=== PATIENT | female | born 1975 | race Caucasian/White ===

== ENCOUNTER 2024-03-09 11:05 | Outpatient (CLI) | payer OTHER, SELFPAY ==
[2024-03-09 11:34] LABS: Basophils Absolute Auto 0.1 K/mm3 (0.0-0.1); Basophils Percent Auto 0.6 % (0.2-1.2); Eosinophils Absolute Auto 0.1 K/mm3 (0-0.3); Eosinophils Percent Auto 1.2 % (0-4.4); Hematocrit 41.2 % (37.0-47.0); Hemoglobin 13.5 g/dL (12.0-15.0); Immature Granulocyte Absolute 0.02 K/mm3 (0.00-0.031); Immature Granulocyte Percent A 0.2 % (0-0.5); Mean Corpuscular HGB Conc 32.8 g/dl (32-36); Mean Corpuscular Hemoglobin 28.9 pg (26-34); Mean Corpuscular Volume 88.2 fl (80-100); Mean Platelet Volume 9.4 fl (7.4-10.4); Monocytes Absolute Auto 0.6 K/mm3 (0.1-0.6); Monocytes Percent Auto 7.3 % (2.6-8.5); Neutrophils Percent Auto 58.7 % (45.5-73.1); Platelet Count Result 276 k/mm3 (150-375); Red Blood Count 4.67 M/mm3 (4.2-5.4); Red Cell Distribution Width 12.5 % (11.5-14.5); White Blood Count 8.4 K/mm3 (4.5-10.0)
[2024-03-09 11:44] LABS: Alanine Aminotransferase 28 U/L (6-35); Albumin Level 4.3 g/dL (3.5-5.1); Alkaline Phosphatase 53 U/L (38-126); Anion Gap 6 mmol/L (4-12); Aspartate Amino Transferase 29 U/L (14-36); Bilirubin,Total 0.7 mg/dL (0.2-1.3); Blood Urea Nitrogen 17 mg/dL (7-17); Calcium 8.9 mg/dL (8.4-10.2); Carbon Dioxide 31 mmol/L (22-30); Chloride 103 mmol/L (98-107); Cholesterol 146 mg/dL (0-200); Estimated Glomerular Filt Rate > 60; Glucose 86 mg/dL (65-110); HDL Direct 58 mg/dL; Magnesium 2.1 mg/dL (1.6-2.3); Potassium 4.7 mmol/L (3.4-5.0); Sodium 140 mmol/L (137-145); Triglycerides 51 mg/dL (<150)
[2024-03-09 11:55] LABS: LDL Cholesterol Direct 74 mg/dL
[2024-03-09 12:07] LABS: Free T4 Free Thyroxine 1.08 ng/mL (0.78-2.19); Vitamin D 25 Hydroxy 66.8 ng/mL
[2024-03-09 12:15] LABS: Thyroid Stimulating Hormone 0.869 uIU/mL (0.465-4.680)
== END 2024-03-09 11:06 | disposition home or self-care (01) ==
PROVIDERS: PCP Internal Medicine; Visit Provider Internal Medicine
DX: Z98.84 Bariatric surgery status (principal)
CPT/HCPCS: 36415; 80053; 80061; 82306; 82607; 83735; 84439; 84443; 85025

== ENCOUNTER 2024-11-13 08:00 | Outpatient (CLI) | payer OTHER, SELFPAY ==
--- NOTE | ~2024-11-13 | MM_ITS ---
EXAMINATION: MM screening [facility] HISTORY: Screening TECHNIQUE: Craniocaudal and mediolateral oblique 3-D tomosynthesis images were obtained and synthetic 2-D images were generated. CAD analysis was submitted and interpreted. COMPARISON: No prior mammogram is available for comparison at this institution. Patient reports prior imaging at [facility], performed as recently as 2022 for which images are requested. BREAST PARENCHYMAL COMPOSITION: The breasts are heterogeneously dense, which may obscure small masses . FINDINGS: Scattered asymmetries detected bilaterally, for which prior imaging is needed. No suspicious microcalcifications or architectural distortion. IMPRESSION: Scattered asymmetries detected bilaterally, for which prior imaging is needed. BI-RADS Category 0: Incomplete: Needs comparison with prior mammograms. Reviewed, dictated and finalized at location A.
== END 2024-11-13 08:01 | disposition home or self-care (01) ==
LOC: MICIMG 08:02
PROVIDERS: PCP Internal Medicine; Visit Provider Obstetrics & Gynecology
DX: Z12.31 Encounter for screening mammogram for malignant neoplasm of breast (principal); N64.89 Other specified disorders of breast
CPT/HCPCS: 77063; 77067

== ENCOUNTER 2024-12-10 08:05 | Outpatient (CLI) | payer OTHER, SELFPAY ==
--- OUTSIDE RECORDS SUMMARY | 2024-12-10 08:11 | XMS_ITS | Data Portability ---
Author Organization [place] - [facility], [facility] V[facility] Address [address] [place] [address] Care Team Providers Care Conversion Man Name Role Phone OLGA MANNING Primary Care Provider CARON CORDERO OTHER DIANA ECHOLS General Surgeon Assessment Encounter Date Assessment Date Assessment LastModified by Organization Details LastModified Time 11/14/2022 11/14/2022 47 y/o female status post robotic laparoscopic florence-en-Y gastric bypass who is here for an annual follow up. She is 2 years out from her surgery and states she is doing fantastic. Her BMI is now 28.7 down from 47.1. She is ecstatic about her weight loss totally 114 pounds since starting the program in which 100 of that is since surgery. She has more confidence and is active in several community events. She denies any difficulties with eating. She reports she had difficulties with IUD insertion and taking control pills so she opted to have the Nexplanon implanted. I have reviewed her labs and the only abnormality is a slightly low vitamin D level. She will add an OTC vitamin D supplement. She is taking her other vitamins as directed. Plan to see her in 1 year with labs. Diabetes Mellitus no GERD no Hyperlipidemia no Hypertension no Sleep Apnea no [id number] Not available 11/15/2022 17:17:06 Plan of Treatment Reminders Order Date Submit Date Provider Last Modified By Organization Details Last Modified Time Details Appointments None recorded. Lab ferritin, serum or plasma 2022 024 [email or web address] [facility], [address], [place], [address], 4 09:11:21 HbA1c (hemoglobi n A1c), blood 2022 024 [email or web address] [facility], [address] [place], [address], 4 09:11:21 iron + total iron-diego ng capacity (TIBC), serum 2022 024 [email or web address] [facility], [address] [place], [address], 4 09:11:21 magnesium, serum or plasma 2022 024 [email or web address] [facility], [address] [place], [address], 4 09:11:22 phosphorus , serum or plasma 2022 024 [email or web address] [facility], [address] [place], [address], 4 09:11:22 folate, RBC 2022 024 [email or web address] [facility], [address] [place], [address], 4 09:11:22 vitamin B12, serum 2022 024 [email or web address] [facility], [address] [place], [address], 4 09:11:22 vitamin B1 (thiamine) , blood 2022 024 [email or web address] [facility], [address] [place], [address], 4 09:11:22 CBC w/ auto diff 2022 024 [email or web address] [facility], [address] [place], [address], 4 09:11:22 CMP, serum or plasma 2022 024 [email or web address] [facility] Orders, [address] [place], [address], 4 09:11:23 vitamin D, 25-hydroxy , total, serum 2022 024 [email or web address] [facility], [address] [place], [address], 4 09:11:23 Referral None recorded. Procedures None recorded. Surgeries None recorded. Imaging None recorded. Medication Orders None recorded. Patient TargetsNo targets recorded. Patient InstructionsNo instructions recorded. Reason for Referral None Reported. Results Created Date Observation Date Name Description Value Unit Range Abnormal Flag Note LastModifiedBy Organization Detail LastModifiedTime 05/29/2005/29/2022 VITAM IN B12 (MARIA DE JESUS PIERCE ) vb12 >1000 pg/mL 239-93 1 high Not Available [facility] (Lab) [address] [place], [address], 05/29/2022 12:27:42 05/29/2005/29/2022 VITAM IN D 25-HY DROXY vd25oh 38.6 NG/mL 30-100 Vitam in D Statu s: Defic ient: <20 ng/mL Insuf ficie nt: 20-29 ng/mL Suffi cient : 30-10 0 ng/mL Not Available [facility] (Lab) [address] [place], [address], 05/29/2022 12:14:23 05/29/2005/29/2022 ARMIN TIN ferritin 61 NG/mL 6.24-1 37 Not Available [facility] (Lab) [address] [place], [address], 05/29/2022 12:03:54 05/29/2005/29/2022 COMPR EHENS GISELLE METAB OLIC PANEL chloride 104 mmol/ L 98-107 Not Available [facility] (Lab) [address] [place], [address], 05/29/2022 12:01:46 05/29/20 22 05/29/2022 COMPR EHENS GISELLE METAB OLIC PANEL sodium 138 mmol/ L 137-14 5 Not Available [facility] (Lab) [address] [place], [address], 05/29/2022 12:01:46 05/29/20 22 05/29/2022 COMPR EHENS GISELLE METAB OLIC PANEL potassium 4.1 mmol/ L 3.5-5. 1 Not Available [facility] (Lab) [address] [place], [address], 05/29/2022 12:01:46 05/29/20 22 05/29/2022 COMPR EHENS GISELLE METAB OLIC PANEL carbon dioxide 29 mmol/ L 22-30 Not Available [facility] (Lab) [address] [place], [address], 05/29/2022 12:01:46 05/29/20 22 05/29/2022 COMPR EHENS GISELLE METAB OLIC PANEL anion gap 9.1 mmol/ L 14-22 low Not Available [facility] (Lab) [address] [place], [address], 05/29/2022 12:01:46 05/29/20 22 05/29/2022 COMPR EHENS GISELLE METAB OLIC PANEL glucose 81 mg/dL 70-99 Not Available [facility] (Lab) [address] [place], [address], 05/29/2022 12:01:46 05/29/20 22 05/29/2022 COMPR EHENS GISELLE METAB OLIC PANEL BUN 17 mg/dL 8-19 Not Available [facility] (Lab) [address] [place], [address], 05/29/2022 12:01:46 05/29/20 22 05/29/2022 COMPR EHENS GISELLE METAB OLIC PANEL creatinine 0.73 mg/dL 0.66-1 .25 Not Available [facility] (Lab) [address] [place], [address], 05/29/2022 12:01:46 05/29/20 22 05/29/2022 COMPR EHENS GISELLE METAB OLIC PANEL GFR >60 Refer ence Range : [place] GFR Healt hy Adult : >60 mL/mi n/1.7 3 m2 Chron ic Kidne y Disea se: 15-60 mL/mi n/1.7 3 m2 Kidne y Failu re: <15/m L/min /1.73 m2 www.n iddk. nih.g ov The MDRD study equat ion has not been valid ated in child joshua <18 years of age; pregn ant women ; the elder ly >85 years of age; or in some racia l or ethni c subgr oups, such as Hisor nics. Outsi de the valid ated jackie eters , estim ated GFR is less accur ate, requi ring clini kevin judgm ent on a case- by-ca se basis . Clini kevin inter preta tion for other races and ages must be made by the clini ade. The MDRD study equat ion has not been valid ated for the evalu ation of serum creat inine relat ed to nutri aneudy l statu s or medic ation usage . For perso ns <18 years of age, a pedia tric GFR calcu lator is avail able on the F websi te: https ://yomi w.kid millicent.o rg/pr ofess ional s/kdo qi/gf r_cal culat or Not Available [facility] (Lab) [address] [place], [address], 05/29/2022 12:01:46 05/29/20 22 05/29/2022 COMPR EHENS GISELLE METAB OLIC PANEL alkaline phosphatase 51 U/L 38-126 Not Available [facility] (Lab) [address] [place], [address], 05/29/2022 12:01:46 05/29/2005/29/2022 COMPR EHENS GISELLE METAB OLIC PANEL alanine aminotransfe rase 22 U/L 0-35 Not Available [facility] (Lab) [address] [facility] [place], [address], 05/29/2022 12:01:46 05/29/2005/29/2022 COMPR EHENS GISELLE METAB OLIC PANEL aspartate aminotransfe rase 22 U/L 15-37 Not Available [facility] (Lab) [address] [place], [address], 05/29/2022 12:01:46 05/29/20 22 05/29/2022 COMPR EHENS GISELLE METAB OLIC PANEL bilirubin, total 0.80 mg/dL 0.20-1 .30 Not Available [facility] (Lab) [address] [place], [address], 05/29/2022 12:01:46 05/29/2005/29/2022 COMPR EHENS GISELLE METAB OLIC PANEL calcium 8.9 mg/dL 8.4-10 .2 Not Available [facility] (Lab) [address] [place], [address], 05/29/2022 12:01:46 05/29/2005/29/2022 COMPR EHENS GISELLE METAB OLIC PANEL total protein 6.4 g/dL 6.3-8. 2 Not Available [facility] (Lab) [address] [place], [address], 05/29/2022 12:01:46 05/29/20 22 05/29/2022 COMPR EHENS GISELLE METAB OLIC PANEL albumin 4.1 g/dL 3.4-5. 0 Not Available [facility] (Lab) [address] [place], [address], 05/29/2022 12:01:46 05/29/20 22 05/29/2022 COMPR EHENS GISELLE METAB OLIC PANEL globulin 2.3 g/dL 2.6-4. 2 low Not Available [facility] (Lab) [address] [place], [address], 05/29/2022 12:01:46 05/29/20 22 05/29/2022 COMPR EHENS GISELLE METAB OLIC PANEL A/G ratio 1.8 ratio 1.0-2. 0 Not Available [facility] (Lab) [address] [place], [address], 05/29/2022 12:01:46 05/29/20 22 05/29/2022 LIPID PANEL cholesterol 147 mg/dL 140-19 9 [facility] NSUS RECOM MENDA TION FOR GEORGE STERO L: ADULT CHILD LOW RISK: <200 <170 BORDE RLINE : <200- 239 ----- HIGH RISK: >240 >200 Not Available [facility] (Lab) [address] [place], [address], 05/29/2022 12:01:41 05/29/20 22 05/29/2022 LIPID PANEL triglyceride s 46 mg/dL 0-150 [facility] NSUS REPOR T RECOM MENDA TION FOR TRIGL YCERI BRUNILDA: ADULT CHILD LOW RISK: <150 ----- BODER LINE: 150-1 99 ----- HIGH RISK: >200 ----- Not Available [facility] (Lab) [address] [place], [address], 05/29/2022 12:01:41 05/29/20 22 05/29/2022 LIPID PANEL HDL cholesterol 73 mg/dL 40- Not Available [facility] (Lab) [address] [place], [address], 05/29/2022 12:01:41 1005/29/2022 LIPID PANEL LDL cholesterol, calculated 65 mg/dL 0-130 [facility] NSUS REPOR T RECOM MENDA TIONS FOR LDL: ADULT CHILD LOW RISK <130 <110 (OPTI MAL LDL) <100 ----- BORDE RLINE : 130-1 59 ----- HIGH RISK: >160 >130 A TRIGL YCERI DE RESUL T >400 INVAL IDATE S THE CALCU LATIO N FOR LDL FRACT IONAT ION - THE LDL RESUL T WILL NOT BE REPOR MARLON. Not Available [facility] (Lab) [address] [place], [address], 05/29/2022 12:01:41 05/29/2005/29/2022 MAGNE SIUM magnesium 1.9 mg/dL 1.6-2. 3 Not Available [facility] (Lab) [address] [place], [address], 05/29/2022 12:01:34 05/29/2005/29/2022 IRON/ TIBC PANEL total iron binding capacity 346 mcg/d L 265-47 5 Not Available [facility] (Lab) [address] [place], [address], 05/29/2022 12:00:15 05/29/20 22 05/29/2022 IRON/ TIBC PANEL % transferrin saturation 35 % 20-55 Not Available [facility] (Lab) [address] [place], [address], 05/29/2022 12:00:15 05/29/2005/29/2022 IRON/ TIBC PANEL unsaturated iron bind capacity 226 mcg/d L 126-38 2 Not Available [facility] (Lab) [address] [place], [address], 05/29/2022 12:00:15 05/29/20 22 05/29/2022 IRON/ TIBC PANEL iron 120 mcg/d L 42-175 Not Available [facility] (Lab) [address] [place], [address], 05/29/2022 12:00:15 05/29/20 22 05/29/2022 CBC/C OMPLE TE BLD COUNT W/DIF F mean red cell volume 90.2 fL 82.0-9 9.0 Not Available [facility] (Lab) [address] [place], [address], 05/29/2022 10:51:37 05/29/20 22 05/29/2022 CBC/C OMPLE TE BLD COUNT W/DIF F white blood cells 8.0 x10'3 /uL 4.2-10 .8 Not Available [facility] (Lab) [address] [place], [address], 05/29/2022 10:51:37 05/29/20 22 05/29/2022 CBC/C OMPLE TE BLD COUNT W/DIF F red blood cells 4.40 x10'6 /uL 3.80-5 .20 Not Available [facility] (Lab) [address] [place], [address], 05/29/2022 10:51:37 05/29/20 22 05/29/2022 CBC/C OMPLE TE BLD COUNT W/DIF F hemoglobin 12.7 g/dL 12.0-1 5.6 Not Available [facility] (Lab) [address] [place], [address], 05/29/2022 10:51:37 05/29/20 22 05/29/2022 CBC/C OMPLE TE BLD COUNT W/DIF F hematocrit 39.7 % 35.7-4 5.7 Not Available [facility] (Lab) [address] [place], [address], 05/29/2022 10:51:37 05/29/20 22 05/29/2022 CBC/C OMPLE TE BLD COUNT W/DIF F mean red cell hemoglobin 28.9 pg 27.0-3 3.0 Not Available [facility] (Lab) [address] [facility] [place], [address], 05/29/2022 10:51:37 05/29/20 22 05/29/2022 CBC/C OMPLE TE BLD COUNT W/DIF F mean RBC HGB concentratio n 32.0 g/dL 31.0-3 6.0 Not Available [facility] (Lab) [address] [place], [address], 05/29/2022 10:51:37 05/29/20 22 05/29/2022 CBC/C OMPLE TE BLD COUNT W/DIF F red cell distribution width 12.4 % 11.8-1 5.5 Not Available [facility] (Lab) [address] [place], [address], 05/29/2022 10:51:37 05/29/20 22 05/29/2022 CBC/C OMPLE TE BLD COUNT W/DIF F platelets 225 x10'3 /uL 150-40 0 Not Available [facility] (Lab) [address] [place], [address], 05/29/2022 10:51:37 05/29/20 22 05/29/2022 CBC/C OMPLE TE BLD COUNT W/DIF F mean platelet volume 9.8 fL 9.0-12 .4 Not Available [facility] (Lab) [address] [place], [address], 05/29/2022 10:51:37 05/29/20 22 05/29/2022 CBC/C OMPLE TE BLD COUNT W/DIF F neutrophils 57.6 % 39.0-7 2.0 Not Available [facility] (Lab) [address] [place], [address], 05/29/2022 10:51:37 05/29/20 22 05/29/2022 CBC/C OMPLE TE BLD COUNT W/DIF F lymphocytes 32.5 % 16.0-4 7.0 Not Available [facility] (Lab) [address] [place], [address], 05/29/2022 10:51:37 05/29/20 22 05/29/2022 CBC/C OMPLE TE BLD COUNT W/DIF F monocytes 7.8 % 5.0-12 .0 Not Available [facility] (Lab) [address] [place], [address], 05/29/2022 10:51:37 05/29/20 22 05/29/2022 CBC/C OMPLE TE BLD COUNT W/DIF F eosinophils 1.3 % 1.0-7. 0 Not Available [facility] (Lab) [address] [place], [address], 05/29/2022 10:51:37 05/29/20 22 05/29/2022 CBC/C OMPLE TE BLD COUNT W/DIF F basophils 0.5 % 0.0-2. 0 Not Available [facility] (Lab) [address] [place], [address], 05/29/2022 10:51:37 05/29/20 22 05/29/2022 CBC/C OMPLE TE BLD COUNT W/DIF F immature granulocytes 0.3 % 0.00-0 .50 Not Available [facility] (Lab) [address] [place], [address], 05/29/2022 10:51:37 05/29/20 22 05/29/2022 CBC/C OMPLE TE BLD COUNT W/DIF F neutrophils, absolute count 4.62 x10'3 /uL 1.5-8. 0 Not Available [facility] (Lab) [address] [place], [address], 05/29/2022 10:51:37 05/29/20 22 05/29/2022 CBC/C OMPLE TE BLD COUNT W/DIF F lymphocytes, absolute count 2.60 x10'3 /uL 1.07-3 .43 Not Available [facility] (Lab) [address] [place], [address], 05/29/2022 10:51:37 05/29/20 22 05/29/2022 CBC/C OMPLE TE BLD COUNT W/DIF F monocytes, absolute count 0.62 x10'3 /uL 0.29-0 .99 Not Available [facility] (Lab) [address] [place], [address], 05/29/2022 10:51:37 05/29/20 22 05/29/2022 CBC/C OMPLE TE BLD COUNT W/DIF F eosinophils, absolute count 0.10 x10'3 /uL 0.02-0 .53 Not Available [facility] (Lab) [address] [place], [address], 05/29/2022 10:51:37 05/29/20 22 05/29/2022 CBC/C OMPLE TE BLD COUNT W/DIF F basophils, absolute count 0.04 x10'3 /uL 0.01-0 .08 Not Available [facility] (Lab) [address] [place], [address], 05/29/2022 10:51:37 05/29/20 22 05/29/2022 CBC/C OMPLE TE BLD COUNT W/DIF F immature granulocytes ,absolute 0.02 x10'3 /uL 0.00-0 .05 Not Available [facility] (Lab) [address] [place], [address], 05/29/2022 10:51:37 05/29/20 22 05/29/2022 CBC/C OMPLE TE BLD COUNT W/DIF F nucleated red blood cells 0.0 % -0 Not Available [facility] (Lab) [address] [place], [address], 05/29/2022 10:51:37 05/29/20 22 05/29/2022 CBC/C OMPLE TE BLD COUNT W/DIF F NRBC# 0.00 x10'3 /uL Not Available [facility] (Lab) [address] [place], [address], 05/29/2022 10:51:37 10/03/19 23 10/03/2022 COMPR EHENS GISELLE METAB OLIC PANEL sodium 136 mmol/ L 137-14 5 low Not Available [facility] (Lab) [address] [place], [address], 10/03/2022 17:05:14 10/03/19 23 10/03/2022 COMPR EHENS GISELLE METAB OLIC PANEL potassium 4.3 mmol/ L 3.5-5. 1 Not Available [facility] (Lab) [address] [place], [address], 10/03/2022 17:05:14 10/03/19 23 10/03/2022 COMPR EHENS GISELLE METAB OLIC PANEL chloride 105 mmol/ L 98-107 Not Available [facility] (Lab) [address] [place], [address], 10/03/2022 17:05:14 10/03/19 23 10/03/2022 COMPR EHENS GISELLE METAB OLIC PANEL carbon dioxide 26 mmol/ L 22-30 Not Available [facility] (Lab) [address] [place], [address], 10/03/2022 17:05:14 10/03/19 23 10/03/2022 COMPR EHENS GISELLE METAB OLIC PANEL anion gap 9.3 mmol/ L 14-22 low Not Available [facility] (Lab) [address] [place], [address], 10/03/2022 17:05:14 10/03/19 23 10/03/2022 COMPR EHENS GISELLE METAB OLIC PANEL glucose 86 mg/dL 70-99 Not Available [facility] (Lab) [address] [place], [address], 10/03/2022 17:05:14 10/03/19 23 10/03/2022 COMPR EHENS GISELLE METAB OLIC PANEL BUN 22 mg/dL 8-19 high Not Available [facility] (Lab) [address] [place], [address], 10/03/2022 17:05:14 10/03/19 23 10/03/2022 COMPR EHENS GISELLE METAB OLIC PANEL creatinine 0.73 mg/dL 0.66-1 .25 Not Available [facility] (Lab) [address] [facility] [place], [address], 10/03/2022 17:05:14 10/03/19 23 10/03/2022 COMPR EHENS GISELLE METAB OLIC PANEL GFR >60 Refer ence Range : [place] GFR Healt hy Adult : >60 mL/mi n/1.7 3 m2 Chron ic Kidne y Disea se: 15-60 mL/mi n/1.7 3 m2 Kidne y Failu re: <15/m L/min /1.73 m2 www.n iddk. nih.g ov The MDRD study equat ion has not been valid ated in child joshua <18 years of age; pregn ant women ; the elder ly >85 years of age; or in some racia l or ethni c subgr oups, such as [facility] nics. Outsi de the valid ated jackie eters , estim ated GFR is less accur ate, requi ring clini kevin judgm ent on a case- by-ca se basis . Clini kevin inter preta tion for other races and ages must be made by the clini ade. The MDRD study equat ion has not been valid ated for the evalu ation of serum creat inine relat ed to nutri aneudy l statu s or medic ation usage . For perso ns <18 years of age, a pedia tric GFR calcu lator is avail able on the [facility] websi te: https ://yomi kelly.yves ricks.o rg/pr ofess ional s/kdo qi/gf r_cal culat or Not Available [facility] (Lab) [address] [place], [address], 10/03/2022 17:05:14 10/03/19 23 10/03/2022 COMPR EHENS GISELLE METAB OLIC PANEL alkaline phosphatase 45 U/L 38-126 Not Available [facility] (Lab) [address] [place], [address], 10/03/2022 17:05:14 10/03/19 23 10/03/2022 COMPR EHENS GISELLE METAB OLIC PANEL calcium 8.4 mg/dL 8.4-10 .2 Not Available [facility] (Lab) [address] [place], [address], 10/03/2022 17:05:14 10/03/19 23 10/03/2022 COMPR EHENS GISELLE METAB OLIC PANEL alanine aminotransfe rase 31 U/L 0-35 Not Available [facility] (Lab) [address] [place], [address], 10/03/2022 17:05:14 10/03/19 23 10/03/2022 COMPR EHENS GISELLE METAB OLIC PANEL aspartate aminotransfe rase 29 U/L 15-37 Not Available [facility] (Lab) [address] [place], [address], 10/03/2022 17:05:14 10/03/19 23 10/03/2022 COMPR EHENS GISELLE METAB OLIC PANEL bilirubin, total 0.90 mg/dL 0.20-1 .30 Not Available [facility] (Lab) [address] [place], [address], 10/03/2022 17:05:14 10/03/19 23 10/03/2022 COMPR EHENS GISELLE METAB OLIC PANEL total protein 5.4 g/dL 6.3-8. 2 low Not Available [facility] (Lab) [address] [place], [address], 10/03/2022 17:05:14 10/03/19 23 10/03/2022 COMPR EHENS GISELLE METAB OLIC PANEL albumin 3.3 g/dL 3.4-5. 0 low Not Available [facility] (Lab) [address] [place], [address], 10/03/2022 17:05:14 10/03/19 23 10/03/2022 COMPR EHENS GISELLE METAB OLIC PANEL globulin 2.1 g/dL 2.6-4. 2 low Not Available [facility] (Lab) [address] [place], [address], 10/03/2022 17:05:14 10/03/19 23 10/03/2022 COMPR EHENS GISELLE METAB OLIC PANEL A/G ratio 1.6 ratio 1.0-2. 0 Not Available [facility] (Lab) [address] [place], [address], 10/03/2022 17:05:14 10/03/1910/03/2022 CBC/C OMPLE TE BLD COUNT W/DIF F mean red cell volume 90.4 fL 82.0-9 9.0 Not Available [facility] (Lab) [address] [place], [address], 10/03/2022 15:07:31 10/03/1910/03/2022 CBC/C OMPLE TE BLD COUNT W/DIF F white blood cells 9.2 x10'3 /uL 4.2-10 .8 Not Available [facility] (Lab) [address] [place], [address], 10/03/2022 15:07:31 10/03/19 23 10/03/2022 CBC/C OMPLE TE BLD COUNT W/DIF F red blood cells 4.92 x10'6 /uL 3.80-5 .20 Not Available [facility] (Lab) [address] [place], [address], 10/03/2022 15:07:31 10/03/19 23 10/03/2022 CBC/C OMPLE TE BLD COUNT W/DIF F hemoglobin 14.1 g/dL 12.0-1 5.6 Not Available [facility] (Lab) [address] [facility] [place], [address], 10/03/2022 15:07:31 10/03/19 23 10/03/2022 CBC/C OMPLE TE BLD COUNT W/DIF F hematocrit 44.5 % 35.7-4 5.7 Not Available [facility] (Lab) [address] [place], [address], 10/03/2022 15:07:31 10/03/19 23 10/03/2022 CBC/C OMPLE TE BLD COUNT W/DIF F mean red cell hemoglobin 28.7 pg 27.0-3 3.0 Not Available [facility] (Lab) [address] [place], [address], 10/03/2022 15:07:31 10/03/19 23 10/03/2022 CBC/C OMPLE TE BLD COUNT W/DIF F mean RBC HGB concentratio n 31.7 g/dL 31.0-3 6.0 Not Available [facility] (Lab) [address] [place], [address], 10/03/2022 15:07:31 10/03/19 23 10/03/2022 CBC/C OMPLE TE BLD COUNT W/DIF F red cell distribution width 12.5 % 11.8-1 5.5 Not Available [facility] (Lab) [address] [place], [address], 10/03/2022 15:07:31 10/03/19 23 10/03/2022 CBC/C OMPLE TE BLD COUNT W/DIF F platelets 257 x10'3 /uL 150-40 0 Not Available [facility] (Lab) [address] [place], [address], 10/03/2022 15:07:31 10/03/19 23 10/03/2022 CBC/C OMPLE TE BLD COUNT W/DIF F mean platelet volume 9.6 fL 9.0-12 .4 Not Available [facility] (Lab) [address] [place], [address], 10/03/2022 15:07:31 10/03/19 23 10/03/2022 CBC/C OMPLE TE BLD COUNT W/DIF F neutrophils 65.5 % 39.0-7 2.0 Not Available [facility] (Lab) [address] [place], [address], 10/03/2022 15:07:31 10/03/19 23 10/03/2022 CBC/C OMPLE TE BLD COUNT W/DIF F lymphocytes 25.7 % 16.0-4 7.0 Not Available [facility] (Lab) [address] [place], [address], 10/03/2022 15:07:31 10/03/19 23 10/03/2022 CBC/C OMPLE TE BLD COUNT W/DIF F monocytes 6.7 % 5.0-12 .0 Not Available [facility] (Lab) [address] [place], [address], 10/03/2022 15:07:31 10/03/19 23 10/03/2022 CBC/C OMPLE TE BLD COUNT W/DIF F eosinophils 1.3 % 1.0-7. 0 Not Available [facility] (Lab) [address] [place], [address], 10/03/2022 15:07:31 10/03/19 23 10/03/2022 CBC/C OMPLE TE BLD COUNT W/DIF F basophils 0.5 % 0.0-2. 0 Not Available [facility] (Lab) [address] [place], [address], 10/03/2022 15:07:31 10/03/19 23 10/03/2022 CBC/C OMPLE TE BLD COUNT W/DIF F immature granulocytes 0.3 % 0.00-0 .50 Not Available [facility] (Lab) [address] [place], [address], 10/03/2022 15:07:31 10/03/1910/03/2022 CBC/C OMPLE TE BLD COUNT W/DIF F neutrophils, absolute count 6.04 x10'3 /uL 1.5-8. 0 Not Available [facility] (Lab) [address] [place], [address], 10/03/2022 15:07:31 10/03/19 23 10/03/2022 CBC/C OMPLE TE BLD COUNT W/DIF F lymphocytes, absolute count 2.37 x10'3 /uL 1.07-3 .43 Not Available [facility] (Lab) [address] [place], [address], 10/03/2022 15:07:31 10/03/19 23 10/03/2022 CBC/C OMPLE TE BLD COUNT W/DIF F monocytes, absolute count 0.62 x10'3 /uL 0.29-0 .99 Not Available [facility] (Lab) [address] [place], [address], 10/03/2022 15:07:31 10/03/1910/03/2022 CBC/C OMPLE TE BLD COUNT W/DIF F eosinophils, absolute count 0.12 x10'3 /uL 0.02-0 .53 Not Available [facility] (Lab) [address] [place], [address], 10/03/2022 15:07:31 10/03/19 23 10/03/2022 CBC/C OMPLE TE BLD COUNT W/DIF F basophils, absolute count 0.05 x10'3 /uL 0.01-0 .08 Not Available [facility] (Lab) [address] [place], [address], 10/03/2022 15:07:31 10/03/19 23 10/03/2022 CBC/C OMPLE TE BLD COUNT W/DIF F immature granulocytes ,absolute 0.03 x10'3 /uL 0.00-0 .05 Not Available [facility] (Lab) [address] [place], [address], 10/03/2022 15:07:31 10/03/19 23 10/03/2022 CBC/C OMPLE TE BLD COUNT W/DIF F nucleated red blood cells 0.0 % -0 Not Available [facility] (Lab) [address] [place], [address], 10/03/2022 15:07:31 10/03/19 23 10/03/2022 CBC/C OMPLE TE BLD COUNT W/DIF F NRBC# 0.00 x10'3 /uL Not Available [facility] (Lab) [address] [place], [address], 10/03/2022 15:07:31 Result Notes None recorded. Problems Name Problem SNOMED Code Status Onset Date Resolution Date Notes Provider Name and Address Organization Details Recorded Time Acute sinusiti s 76704675 Completed 202111/15/2022 Removal Reason: resolved Caron Cordero [facility] 3 17:05:56 Insomnia 152645257 Active 2021 Not Available [facility] 3 14:11:05 Anxiety disorder 826185943 Active Not Available [facility] 3 14:11:05 Morbid obesity 436545821 Completed 201905/29/2021 Not Available [facility] 3 14:11:05 Post-toma gical malabsor ption 862622556 Active 2020 Not Available [facility] 3 14:11:05 Malaise and fatigue 129372757 Completed 11/15/2022 Removal Reason: resolved Caron - BRIEN Corder[facility], [facility] 3 17:06:19 Vitamin D deficien cy 58389259 Active 2020 Not Available [facility] 3 14:11:05 Depressi ve disorder 06597790 Active Not Available [facility] 3 14:11:05 Body mass index 40+ - severely obese [id number] Completed 201905/29/2021 Not Available [facility] 3 14:11:05 Initial insomnia 34219018 Active 2021 Not Available [facility] 3 14:11:05 History of bariatri c surgical procedur e 208283663 Active 2020 Not Available [facility] 3 14:11:06 Adverse reaction to drug 92626400 Active 2021 Not Available [facility] 3 14:11:06 Cholelit hiasis without obstruct ion 94068783 Active Not Available [facility] 3 14:11:06 Postchol ecystect parviz syndrome 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 Procedures Surgical History Date Name Laterality Status Provider Name and Address Organization Details Recorded Time 11/22/19 21 LAPARASCOPIC [place]-EN-Y GASTRIC BYPASS (SURG) completed Not Available [facility] 08/31/2022 14:08:22 Imaging Results None recorded. Procedure Notes None recorded. Medical Equipment None Reported. Allergies Allergen ID Allergen Name Allergen Category Reaction Reaction Severity Criticality Documentation Date Start Date Code Code System Note Provider Name and Address Organization Details Recorded Time 39584 Tegaderm medicatio n Not available Not available Not available 08/31/2022 67536 UNK Not Available [facility] 3 14:12:34 34981 amoxicill in medicatio n Not available Not available Not available 08/31/2022 723 RxNorm Not Available [facility] 3 14:12:34 Medications Name Sig Start Date Stop Date Status Note LastModified by Organization Details LastModified Time amoxicillin 500 mg capsule Take 1 capsule 3 times a day by oral route for 10 days. 12/23 completed Not Available Not Available Not Available Augmentin 875 mg-125 mg tablet Take 1 tablet every 12 hours by oral route. active Not Available Not Available No t Available Tylenol-Cod eine #4 300 mg-60 mg tablet Take 1 tablet every 6 hours by oral route. 11/15 completed Not Available Not Available Not Available Neurontin 300 mg capsule Take 1 capsule 3 times a day by oral route. 2014 active Not Available Not Available Not Avai lable trazodone 50 mg tablet TAKE 1 TABLET BY MOUTH EVERYDAY AT BEDTIME 06/05 completed Not Available Not Available Not Available Topamax 25 mg tablet Take 1 tablet twice a day by oral route. active Not Available Not Available No t Available benzonatate 200 mg capsule Take 1 capsule 3 times a day by oral route. active Not Available Not Available No t Available Zithromax Z-Eric 250 mg tablet TAKE 2 TABLETS (500 MG) BY ORAL ROUTE ONCE DAILY FOR 1 DAY THEN 1 TABLET (250 MG) BY ORAL ROUTE ONCE DAILY FOR 4 DAYS 11/14 completed Not Available Not Available Not Available Diflucan 150 mg tablet Take 1 tablet every day by oral route. active Not Available Not Available No t Available Wellbutrin SR 150 mg tablet, 12 hr sustained-r elease Take 1 tablet every day by oral route. 2014 active Not Available Not Available Not Avai lable Ciloxan 0.3 % eye drops Instill 1 DROP EVERY 2 HOURS while awake active Not Available Not Available No t Available Zofran 4 mg tablet Take 1 tablet every 4-6 hours by oral route. 11/15 completed Not Available Not Available Not Available trazodone 100 mg tablet Take 1 tablet twice a day by oral route. 11/14 completed Not Available Not Available Not Available Xanax 0.25 mg tablet Take 1 tablet 3 times a day by oral route. 11/15 completed Not Available Not Available Not Available pantoprazol e 40 mg tablet,isatu yed release TAKE 1 TABLET BY MOUTH EVERY DAY 06/20 completed Not Available Not Available Not Available Levaquin 500 mg tablet Take 1 tablet every 24 hours by oral route. active Not Available Not Available No t Available [place] 7.5 mg-325 mg tablet Take 1 tablet every 6 hours by oral route. 11/15 completed Not Available Not Available Not Available methylpredn isolone 4 mg tablets in a dose pack Take by oral route as per package insert active Not Available Not Available No t Available albuterol sulfate HFA 90 mcg/actuati on aerosol inhaler Inhale 2 puffs every 6 hours by inhalatio n route. active Not Available Not Available No t Available Lovenox 40 mg/0.4 mL subcutaneou s syringe Inject 0.4 mL every day by subcutane ous route for 10 days. 11/15 completed Not Available Not Available Not Available Daily-Kym tablet TAKE 1 TABLET BY MOUTH EVERY DAY active Not Available Not Available No t Available NuvaRing 0.12 mg-0.015 mg/24 hr vaginal Insert 1 vaginal ring every month by vaginal route. 11/15 completed Not Available Not Available Not Available metoprolol tartrate 25 mg tablet TAKE 1 TABLET BY MOUTH TWICE DAILY 11/15 completed Not Available Not Available Not Available topiramate 50 mg tablet TAKE 1 TABLET BY MOUTH TWICE DAILY 11/15 completed Not Available Not Available Not Available Vitamin B12 active Not Available Not A vailable Not Available Calcium 600 + D(3) 600 mg-10 mcg (400 unit) tablet TAKE 1 TABLET BY MOUTH TWICE A DAY active Not Available Not Available No t Available Annovera 0.15 mg-0.013 mg/24 hr vaginal ring active Not Available Not Available Not Available Vitals Date Recorded Body height Body mass index (BMI) Body weight Body temperature Heart rate Oxygen saturation Oxygen saturation in Arterial blood by Pulse oximetry Systolic blood pressure Diastolic blood pressure Provider Name and Address Organization Details Last Updated DateTime 3 167.64 cm 28.7 kg/m2 30009.4 4 g 97 [degF] 79 /min 98 % 98 % 123 mm[Hg] 85 mm[Hg] Lilia Garcia [facility] 3 15:06:01 Date Recorded Body mass index (BMI) Body height Oxygen saturation Oxygen saturation in Arterial blood by Pulse oximetry Heart rate Body temperature Body weight Systolic blood pressure Diastolic blood pressure Provider Name and Address Organization Details Last Updated DateTime 2 29.2 kg/m2 167.64 cm 98 % 98 % 83 /min 97.4 [degF] 57963.2 2 g 114 mm[Hg] 75 mm[Hg] Not Available [facility] 3 14:09:15 Date Recorded Body mass index (BMI) Body height Oxygen saturation Oxygen saturation in Arterial blood by Pulse oximetry Heart rate Body temperature Body weight Systolic blood pressure Diastolic blood pressure Provider Name and Address Organization Details Last Updated DateTime 2 28.7 kg/m2 167.64 cm 100 % 100 % 72 /min 97.1 [degF] 26910.4 4 g 120 mm[Hg] 68 mm[Hg] Not Available [facility] 3 14:09:15 Date Recorded Body mass index (BMI) Body height Oxygen saturation Oxygen saturation in Arterial blood by Pulse oximetry Heart rate Body temperature Body weight Systolic blood pressure Diastolic blood pressure Provider Name and Address Organization Details Last Updated DateTime 2 28 kg/m2 167.64 cm 98 % 98 % 82 /min 97.3 [degF] 89919.2 8 g 112 mm[Hg] 60 mm[Hg] Not Available [facility] 3 14:09:15 Social History Question Answer Notes LastModified by Organizat ion Details LastModified Time Tobacco Smoking Status Former Smoker Not Available [facility] 08/31/2022 14:07:33 Do You Have An Advance Directive? No [id number] Information not available 08/31/2022 What Type Of Diet Are You Following? SPECIFIC [id number] Information not available 08/31/2022 Have You Recently Traveled Abroad? No [id number] Information not available 08/31/2022 Sex: Unknown Functional Status None recorded. Mental Status None recorded. Family History Nothing Reported Notes:Mother age 59 A+W Fath er age 65 A+W Sister 1 A+W MGM Breast ca,cad, HTN , CVA , dm MGF Cancer, CAD , HTN , CVA PGF prostate cancer Medical History Condition Response NERVE DISEASE N BLINDNESS N RHEUMATIC FEVER N KIDNEY STONES N BLADDER PROBLEMS N MRSA N OTHER # 1 N POLIO N LUNG DISEASE/DISORDER N RADIATION / CHEMOTHERAPY N COPD N Other # 2 N BLOOD DISEASES N EAR OR HEARING PROBLEMS N MUMPS N DEPRESSION (INCLUDING POST ) Y BOWEL PROBLEMS N STROKE/TIA N ULCERS N BENIGN PROSTATIC HYPERPLASIA N MEASLES N MYOCARDIAL INFARCTION N OBESITY N GERD/NAUSEA N ANEURYSM N URINARY/BLADDER/KIDNEY PROBLEMS N CORONARY ARTERY DISEASE (CAD) N ADDICTION CONCERNS N Impotence N ENDOMETRIOSIS N USE OF BLOOD THINNERS N SKIN PROBLEMS N GASTROINTESTINAL DISORDER N PERIPHERAL VASCULAR DISEASE N MUSCLE,JOINT OR BONE PROBLEMS N GASTROINTESTINAL BLEEDING N BLOOD CLOTS N ASTHMA N CATARACTS N ERECTILE DYSFUNCTION N VARICOSITIES N GI PROBLEMS N Low Testosterone N INFERTILITY N AIDS/HIV N CHEMOTHERAPY / RADIATION N LIVER DISEASE N MALE HYPOGONADISM N HYPERTENSION Y Deficiency N TOURETTE'S N ANXIETY DISORDER N BLOOD TRANSFUSION N ANEMIA/BLOOD DISORDER N CHRONIC EAR INFECTIONS N BRONCHITIS N TUBERCULOSIS N GLAUCOMA N FOOT PROBLEM N DIVERTICULITIS N SLEEP APNEA N CHICKENPOX N INFECTIOUS DISEASE N PROSTATE N HEART ARRHYTHMIA N INSOMNIA N HIGH CHOLESTEROL / HYPERLIPIDEMIA N HYPERTHYROIDISM N EYE PROBLEMS N EDEMA N CHRONIC PAIN SYNDROME N HYPOTHYROIDISM N CONSTIPATION N CAROTID BLOCKAGE N BACK / NECK PROBLEMS N HAVE YOU BEEN HOSPITALIZED OR SEEN IN [facility] IN THE PAST YEAR ? N ATHEROSCLEROSIS N BREAST PROBLEMS N DIALYSIS N ECZEMA N OSTEOPOROSIS N ARTHRITIS N NO SIGNIFICANT PAST MEDICAL HISTORY N APPENDICITIS N DIABETES, TYPE N BAD TEETH N ENT N HEARTBURN / REFLUX N AUTISM SPECTRUM DISORDER (ASD) N HEPATITIS / LIVER DISEASE N GOUT N SLEEP DISORDER N ALZHEIMER'S DISEASE N Brain Problems N HERPES N DEMENTIA N SEIZURES/EPILEPSY N HEADACHES/MIGRAINES Y VASCULAR DISEASE N PACEMAKER N Blood Disorder N DIZZINESS N KIDNEY DISEASE N HEART DISEASE/HEART PROBLEMS N MULTIPLE SCLEROSIS N CARDIAC ARRHYTHMIA N CANCER: SPECIFY N Gall Stones N ATRIAL FIBRILLATION N PULMONARY EMBOLISM N AUTOIMMUNE DISEASE N ABDOMINAL PAIN N Gynecological HistoryNo gynecological history recorded. Obstetrics History GPAL:G 0 P 0 0 0 0 Immunizations Vaccine Type Date Status Note Provider Nam e and Address Organization Details Recorded Time SARS-COV-2 (COVID-19) vaccine, UNSPECIFIED 1 completed Not Available [facility] 08/31/2022 14:12:31 Influenza, split virus, quadrivalent, preservative 1 completed Not Available [facility] 08/31/2022 14:12:32 SARS-COV-2 (COVID-19) vaccine, UNSPECIFIED 1 completed Not Available [facility] 08/31/2022 14:12:32 SARS-COV-2 (COVID-19) vaccine, UNSPECIFIED 1 completed Not Available [facility] 08/31/2022 14:12:32 tetanus toxoid, adsorbed 5 completed Not Available [facility] 08/31/2022 14:12:32 Td (adult), 5 Lf tetanus toxoid, preservative free, adsorbed 5 completed Not Available [facility] 08/31/2022 14:12:32 Past Encounters Encounter ID Performer Location Encounter Start Date Encounter Closed Date Diagnosis/Indication Diagnosis SNOMED-CT Code Diagnosis ICD10 Code Diagnosis Note [id number] DISP_CR Bariatric s [address] [place] [address] 11/09/2020 00:00:00 11/09/2020 14:02:53 [id number] DISP_CR [address] [place] [address] 11/15/2020 00:00:00 11/15/2020 13:05:01 [id number] _ATHENA_M IGRATION_ DEFAULT_1 _5 , 11/15/2020 00:00:00 11/15/2020 17:03:32 [id number] DISP_CR [address] [place] [address] 12/11/2020 00:00:00 12/11/2020 17:05:32 [id number] _ATHENA_M IGRATION_ DEFAULT_1 _5 , 01/10/2021 00:00:00 01/10/2021 15:20:05 [id number] DISP_CR [address] [place] [address] 02/27/2021 00:00:00 02/27/2021 17:39:05 [id number] _ATHENA_M IGRATION_ DEFAULT_1 _5 , 03/21/2021 00:00:00 03/21/2021 16:43:32 [id number] DISP_CR Bariatric s [address] [place] [address] 05/29/2021 00:00:00 05/29/2021 16:14:01 [id number] _ATHENA_M IGRATION_ DEFAULT_1 _5 , 06/20/2021 00:00:00 06/20/2021 15:02:15 [id number] _ATHENA_M IGRATION_ DEFAULT_1 _5 , 09/19/2021 00:00:00 09/19/2021 15:10:48 [id number] DISP_CR [address] [place] [address] 11/15/2021 00:00:00 11/15/2021 18:17:14 [id number] _ATHENA_M IGRATION_ DEFAULT_1 _5 , 05/23/2022 00:00:00 05/23/2022 12:16:30 [id number] _ATHENA_M IGRATION_ DEFAULT_1 _5 , 06/05/2022 00:00:00 06/05/2022 14:46:29 [id number] Caron Cordero DISP_CR [address] [place] [address] 11/14/2022 14:55:11 11/14/2022 15:43:05 History of bariatric surgical procedure [id number] 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 383498761 K91.2 Vitamin D deficiency 347 37014 E55.9 [id number] _ATHENA_M IGRATION_ DEFAULT_1 _5 , 10/04/2022 00:00:00 10/04/2022 11:56:47 Health Concerns Section Related Observation LastModified by Organization Detai ls LastModified Time None Recorded Concern Status LastModified by Organization Details LastModified Time None Recorded Advance Directives Directive N: Payers Encounter Date Sequence Insurance Name Policy Number Policy Velez Covered Member ID Velez Member ID Guarantor Name 11/14/2022 1 [place] 000 Diana Rodriguez [id number] Diana Rodriguez Notes Date Note Type Note Provider Name and Address Organization Details Recorded Time 11/14/2022 text/html 47 y/o female status post robotic laparoscopic [place]-en-Y gastric bypass who is almost 2 years post operative.and here for an annual visit. She is doing great and wishes she had done surgery years ago. She states she has a whole new outlook on life, has learned to accept herself, and loves being more involved in her community. She states her weight was down to 160 but she feels more comfortable with her weight ranging in the 170's. She denies any troubles with any types of foods and reports she only has problems when she forgets and eats to fast. Caron silva, [facility] 11/15/2022 17:19:45 OBGyn Episode No OBEpisode recorded.
--- OUTSIDE RECORDS SUMMARY | 2024-12-10 08:11 | XMS_ITS | Data Portability ---
Author Organization [facility] RONALDMarian [facility] Address [address] [place] [address] Care Team Providers Care Relationship Specialist Name Role Phone JOSE GRAYSON Lawn Service Manager Assessment Encounter Date Assessment Date Assessment LastModified by Organization Details LastModified Time 11/09/2021 11/09/2021 SHEN Lopez Not available 11/21/2021 22:35:45 01/04/2022 01/04/2022 SHEN Kirkland Not available 01/04/2022 14:53:27 Plan of Treatment Reminders Order Date Submit Date Provider Last Modified By Organization Details Last Modified Time Details Appointments None recorded. Lab test, urine 2021 022 [email or web address] 1 In-Office Order, Internal Use Only DO Not Attach Compendium DO Not Attach Compendium, Do Not Delete/merge, [id number] 10:22:30 test, urine 2021 022 [email or web address] 1 In-Office Order, Internal Use Only DO Not Attach Compendium DO Not Attach Compendium, Do Not Delete/merge, [id number] 10:12:55 hepatitis panel (A+B+C), acute, serum 2020 021 [facility], [address] [place], [address], 15:55:43 treponema pallidum screen, serum, reflex confirmat ion 2020 021 [facility], [address] [place], [address], 1 15:55:43 HIV 1+2 AB + HIV 1 p24 Ag, qualitati ve immunoass ay, serum 2020 021 [facility], [address] [place], [address], 1 15:55:43 CT + NG + TV, DNA, urine/swa b 2020 021 [facility], [address] [place] [address], [address], [place], [address], 1 03:07:48 urinalysi s, dipstick 2019 020 walter In-Office Order, Internal Use Only DO Not Attach Compendium DO Not Attach Compendium, Do Not Delete/merge, [id number] 0 10:39:10 pap, IG + HPV, cervical 2019 020 [facility], [address] [place] [address], [address], [place], [address], 0 16:09:19 bacterial vaginosis panel, vaginal 2019 020 [facility] (Centralized Electronic Ordering - All Locations), Patient Can Go To The Location Of Their Choice, [id number] 0 06:21:45 culture, vaginal/r ectal, streptoco ccus group B 2019 020 [facility]), Patient Can Go To The Location Of Their Choice, [id number] 0 06:21:46 Referral None recorded. Procedures None recorded. Surgeries None recorded. Imaging US, pelvis, transabdo mitul + transvagi nal 2021 022 [facility] ([facility] Sched[facility]), [address] [place], [address], 2 17:28:34 MAMMO, screening , bilateral 2020 021 [facility] ([facility] Scheduling), [address] [place], [address], 1 10:16:54 MAMMO, screening , bilateral 2019 020 [facility] (One Call Scheduling), [address] [place], [address], 0 10:24:07 Medication Orders Nexplanon 68 mg subdermal implant 2021 022 [email or web address] Not available 2 11:25:06 Mirena 21 mcg/24 hr (up to 8 years) 52 mg intrauter ine device 2021 022 [email or web address] [facility] #[id number], [address] [place], [address], 2 09:47:35 Mirena 21 mcg/24 hr (up to 8 years) 52 mg intrauter ine device 2021 022 dgriggsma Not available 2 09:47:35 Annovera 0.15 mg-0.013 mg/24 hr vaginal ring 2020 021 [email or web address] 1 [facility], [address] [place] [address], [address], 2 11:18:08 multivita min tablet 2019 020 [id number], [address] [place], [place], [id number], 0 10:38:33 Calcium with Vitamin D 600 mg-10 mcg (400 unit) tablet 2019 020 [facility] #[id number], [address] [place], [place], [id number], 1 10:29:58 imiquimod 5 % topical cream packet 2019 [facility] #[id number] [place], [place], [id number], 10:30:48 Patient TargetsNo targets recorded. Patient Instructions Encounter Date Encounter Id Patient Instructions Last Modified By Organization Details Last Modified Time 09/29/2019 [id number] mammogram: about this test margaretafsaneh Not available 09/29/2019 10:23:59 genital warts: care instructions [facility] Not available 09/29/2019 10:54:09 human papillomavirus (HPV): care instructions [facility] Not available 09/29/2019 10:54:09 Begin Imiquimod for genital warts. Multivitamin & calcium. Return in 2 months and 4 months for gardasil series. Schedule Mammogram. margaretfasaneh Not available 09/29/2019 10:59:18 Discussed option s for perimenopausal state - norethindrone, Combi patch, will consider if symptoms worsen. margaretafsaneh Not available 09/29/2019 10:59:42 05/10/2021 [id number] learning about breast cancer screening Not available 05/10/2021 10:46:05 Reason for Referral None Reported. Results Created Date Observation Date Name Description Value Unit Range Abnormal Flag Note LastModifiedBy Organization Detail LastModifiedTime 09/29/1909/29/2019 urina lysis , dipst ick Leukocytes Negati ve Not Available In-Office Order Internal Use Only DO Not Attach Compendium DO Not Attach Compendium, Do Not Delete/merge, [id number] 09/29/2019 10:12:42 09/29/1909/29/2019 urina lysis , dipst ick Nitrite negati ve Not Available In-Office Order Internal Use Only DO Not Attach Compendium DO Not Attach Compendium, Do Not Delete/merge, [id number] 09/29/2019 10:12:42 09/29/192020 urina lysis , dipst ick Urobilinogen .2 Not Available In-Of fice Order Internal Use Only DO Not Attach Compendium DO Not Attach Compendium, Do Not Delete/merge, 09/29/2019 10:12:42 09/29/19 20 09/29/2019 urina lysis , dipst ick Protein Negati ve Not Available In-Office Order Internal Use Only DO Not Attach Compendium DO Not Attach Compendium, Do Not Delete/merge, 09/29/2019 10:12:42 09/29/19 20 09/29/2019 urina lysis , dipst ick pH 5.5 Not Available In-Office Order Internal Use Only DO Not Attach Compendium DO Not Attach Compendium, Do Not Delete/merge, 09/29/2019 10:12:42 09/29/19 20 09/29/2019 urina lysis , dipst ick Blood Negati ve Not Available In-Office Order Internal Use Only DO Not Attach Compendium DO Not Attach Compendium, Do Not Delete/merge, 09/29/2019 10:12:42 09/29/19 20 09/29/2019 urina lysis , dipst ick Specific [place] 1.020 Not Available In-Off ice Order Internal Use Only DO Not Attach Compendium DO Not Attach Compendium, Do Not Delete/merge, 09/29/2019 10:12:42 09/29/19 20 09/29/2019 urina lysis , dipst ick Ketone Negati ve Not Available In-Office Order Internal Use Only DO Not Attach Compendium DO Not Attach Compendium, Do Not Delete/merge, 09/29/2019 10:12:42 09/29/19 20 09/29/2019 urina lysis , dipst ick Bilirubin Negati ve Not Available In-Office Order Internal Use Only DO Not Attach Compendium DO Not Attach Compendium, Do Not Delete/merge, 09/29/2019 10:12:42 09/29/19 20 09/29/2019 urina lysis , dipst ick Glucose Negati ve Not Available In-Office Order Internal Use Only DO Not Attach Compendium DO Not Attach Compendium, Do Not Delete/merge, [id number] 09/29/2019 10:12:42 09/29/19 20 10/01/2019 pap, IG + HPV, cervi kevin diagnosis: COMMEN T SHELDON DESAI FOR INTRA EPITH ELIAL LESIO N OR NANCYMIGUEL MIKE . PREDO SRI CE OF COCCO BACIL LI CONSI STENT WITH SHIFT IN VAGIN AL SUMANTH IS PRESE NT. CELLU LAR HANNAH ES ASSOC IATED WITH INFLA MMATI ON ARE PRESE NT. Not Available [facility] ([facility]) [address] [facility], [place], [address], 10/01/2019 16:09:18 09/29/19 20 10/01/2019 pap, IG + HPV, cervi kevin specimen adequacy: COMMUZMA T Satis facto jany for evalu ation . Endoc ervic al and/o r squam ous metap lasti c cells (endo cervi kevin compo nent) are prese nt. Not Available [facility] ([facility]) [address] [facility], [place], [address], 10/01/2019 16:09:18 09/29/19 20 10/01/2019 pap, IG + HPV, cervi kevin clinician provided ICD10: UYEN Negron Z01.4 19 Z20.2 Not Available [facility] ([facility]) [address] [facility], [place], [address], 10/01/2019 16:09:18 09/29/19 20 10/01/2019 pap, IG + HPV, cervi kevin performed by: UYEN Lang rs, Cytot harris negron (ASCP ) Not Available [facility] ([facility]) [address] [place], [address], 10/01/2019 16:09:18 09/29/19 20 10/01/2019 pap, IG + HPV, cervi kevin . . Not Available [facility] ([facility]) [address] [place], [address], 10/01/2019 16:09:18 09/29/19 20 10/01/2019 pap, IG + HPV, cervi kevin note: COMMEN T The Pap smear is a scree gilberto test desig stephany to aid in the detec tion of endy ligna nt and malig nant condi tions of the uteri ne cervi x. It is not a diagn ostic proce dure and shoul d not be used as the sole means of detec ting cervi kevin cance r. Both false -posi tive and false -nega tive repor ts do occur . Not Available [facility] ([facility]) [address] [place], [address], 10/01/2019 16:09:18 09/29/1910/01/2019 pap, IG + HPV, cervi kevin test methodology: TNP The Thin Prep( R) Image r was unabl e to read this speci men. There fore a manua l revie w was perfo rmed. Not Available [facility] ([facility]) [address] [facility], [place], [address], 10/01/2019 16:09:18 09/29/1910/01/2019 pap, IG + HPV, cervi kevin HPV aptima NEGATI VE negati ve This nucle ic acid ampli ficat ion test detec ts fourt een high- risk HPV types (16,1 8,31, 33,35 ,39,4 5,51, 52,56 ,58,5 9,66, 68) witho ut diffe renti ation . Not Available [facility] ([facility]) [address] [place], [address], 10/01/2019 16:09:18 09/29/1910/02/2019 bacte rial vagin osis panel , vagin al atopobium vaginae HIGH - 2 score abnormal Not Available [facility] ([facility]) [address] [place], [address], 10/05/2019 06:21:45 09/29/1910/02/2019 bacte rial vagin osis panel , vagin al bvab 2 HIGH - 2 score abnormal Not Available [facility] ([facility]) [address] [place], [address], 10/05/2019 06:21:45 09/29/1910/02/2019 bacte rial vagin osis panel , vagin al megasphaera 1 HIGH - 2 score abnormal Calcu late total score by audi krishnan the 3 indiv idual bacte rial vagin osis (BV) marke r score s toget her. Total score is inter prete d as follo ws: Total score 0-1: Indic ates the absen ce of BV. Total score 2: Indet ermin ate for BV. Addit ional clini kevin data shoul d be evalu ated to estab aysha a diagn osis. Total score 3-6: Indic ates the prese nce of BV. This test was devel oped and its perfo rmanc e monica cteri stics deter mined by [facility]. It has not been clear ed or appro brittny by the Food and Drug Admin istra tion. The FDA has deter mined that such clear ance or appro kianna is not neces hakan. Not Available [facility] ([facility]) [address] [facility], [place], [address], 10/05/2019 06:21:45 09/29/1910/02/2019 bacte rial vagin osis panel , vagin al hoang albicans, KARISHMA NEGATI VE negati ve Not Available [facility] ([facility]) [address] [place], [address], 10/05/2019 06:21:45 09/29/1910/02/2019 bacte rial vagin osis panel , vagin al hoang glabrata, KARISHMA NEGATI VE negati ve Not Available [facility] ([facility]) [address] [place], [address], 10/05/2019 06:21:45 09/29/1910/02/2019 bacte rial vagin osis panel , vagin al trich vag by KARISHMA NEGATI VE negati ve Not Available [facility] ([facility]) [address] [place], [address], 10/05/2019 06:21:45 09/29/1910/02/2019 bacte rial vagin osis panel , vagin al chlamydia trachomatis, KARISHMA NEGATI VE negati ve Not Available [facility] ([facility]) [address] [place], [address], 10/05/2019 06:21:45 09/29/1910/02/2019 bacte rial vagin osis panel , vagin al neisseria gonorrhoeae, KARISHMA NEGATI VE negati ve Not Available [facility] ([facility]) [address] [place], [address], 10/05/2019 06:21:45 09/29/1910/05/2019 bacte rial vagin osis panel , vagin al hsv 1 KARISHMA NEGATI VE negati ve Not Available [facility] ([facility]) [address] [place], [address], 10/05/2019 06:21:45 09/29/1910/05/2019 bacte rial vagin osis panel , vagin al hsv 2 KARISHMA NEGATI VE negati ve Not Available [facility] ([facility]) [address] [place], [address], 10/05/2019 06:21:45 09/29/19 20 10/01/2019 cultu re, vagin al/re ctal, strep tococ cus group B strep gp B KARISHMA NEGATI VE negati ve Cente rs for Disea se Contr ol and Preve ntion (CDC) and Ameri can Congr ess of Obste trici ans and Gynec ologi sts (ACOG ) guide lines for preve ntion of perin atal group B strep tococ kevin (GBS) disea se speci fy co-co llect ion of a vagin al and recta l swab speci men to maxim ize sensi tivit y of GBS detec tion. Per the CDC and ACOG, swabb ing both the lower vagin a and rectu m subst antia lly incre ases the yield of detec tion esymour red with sampl ing the vagin a alone . Penic illin G, ampic illin , or cefaz new are indic ated for intra partu m proph ylaxi s of perin atal GBS colon izati on. Refle x susce ptibi lity testi ng shoul d be perfo rmed prior to use of clind amyci n only on GBS isola louise from penic illin -alexx rgic women who are consi dered a high risk for anaph ylaxi s. Treat ment with vanco mycin witho ut addit ional testi ng is warra nted if resis tance to clind amyci n is noted . Not Available [facility] ([facility]) [address] [place], [address], 10/05/2019 06:21:46 05/10/20 21 05/11/2021 CT, NG, TRICH VAG BY KARISHMA chlamydia by KARISHMA Negati ve negati ve Not Available [facility] ([facility]) [address] [place], [address], 05/12/2021 03:07:47 05/10/20 21 05/11/2021 CT, NG, TRICH VAG BY KARISHMA gonococcus by KARISHMA Negati ve negati ve Not Available [facility]) [address] [place], [address], 05/12/2021 03:07:47 05/10/20 21 05/11/2021 CT, NG, TRICH VAG BY KARISHMA trich vag by KARISHMA Negati ve negati ve Not Available [facility]) [address] [place], [address], 05/12/2021 03:07:47 12/01/19 22 11/30/2021 pregn joseph test, urine HCG negati ve Not Available In-Office Order Internal Use Only DO Not Attach Compendium DO Not Attach Compendium, Do Not Delete/merge, [id number] 11/30/2021 09:41:30 01/05/20 22 01/04/2022 pregn joseph test, urine HCG negati ve Not Available In-Office Order Internal Use Only DO Not Attach Compendium DO Not Attach Compendium, Do Not Delete/merge, [id number] 01/04/2022 09:49:09 05/18/20 21 05/18/2021 MAMMO , scree gilberto, bilat eral No observ ation record ed. [facility] [address] [place], [address], 05/18/2021 18:28:21 07/02/20 21 05/18/2021 MAMMO , scree gilberto, bilat eral No observ ation record ed. [facility] [address] [place], [address], 07/07/2021 08:57:44 11/17/19 22 11/16/2021 US, pelvi s, trans abdom inal + trans vagin al No observ ation record ed. 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 Procedures Surgical History Date Name Laterality Status Provider Name and Address Organization Details Recorded Time 01/05/20 22 Control Implant Insertion completed LOGAN VOGT Attn: Accounting,[address] [place] [address], [phone], [facility] - SI 01/04/2022 10:43:07 12/01/19 22 IUD Insertion completed LOGAN VOGT Attn: Accounting,[address] [place] [address], [phone], [facility] - SI 12/11/2021 17:03:37 05/18/20 21 Date of Last Mammogram completed Zoe Williamson [place] - [place] 11/09/2021 10:05:28 11/22/19 21 Gastric Bypass completed Tita Damon [place] - [place] 05/10/2021 10:34:41 09/29/19 20 Date of Last Pap Smear completed Zoe Williamson [place] - [place] 11/09/2021 10:05:34 12/24/19 16 Endometrial Ablation completed Kurtis Shelby [place] - [place] 09/29/2019 10:21:39 07/17/20 02 Caesarean Section completed Sunni Johnston MA [place] - [place] 07/26/2014 13:48:00 Cholecystectomy completed Kurtis Gaffneyman [facility] SI 01/05/2016 08:19:11 Dilation and Curettage completed Portia Laws MA [place] - [place] 01/29/2016 16:35:49 Imaging Results Imaging Date Name Status LastModified by Organization Details LastModified Time 05/18/2021 MAMMO, screening, bilateral completed [facility] [address] [place], [address], 05/18/2021 18:28:21 05/18/2021 MAMMO, screening, bilateral completed [facility] [address] [place], [address], 07/07/2021 08:57:44 11/16/2021 US, pelvis, transabdominal + transvaginal completed [facility] ([facility]) [address] [place], [address], 11/21/2021 14:54:18 Procedure Notes None recorded. Medical Equipment None Reported. Allergies Allergen ID Allergen Name Allergen Category Reaction Reaction Severity Criticality Documentation Date Start Date Code Code System Note Provider Name and Address Organization Details Recorded Time 4496 amoxicill in medicatio n other moderate Not available 07/26/2014 723 RxNorm cause s horri ble yeast infec tion Not Available Not Available Not Available Medications Name Sig Start Date Stop Date Status Note LastModified by Organization Details LastModified Time metronidaz ole vaginal 0.75 % gel 05/10 completed Not Available Not Available Not Available imiquimod 5 % crea 11/30 completed Not Available Not Available Not Available Prescripti on - New 11/30 completed Not Available Not Available Not Available multivitam in tablet Take 1 tablet every day by oral route. 2019 active Not Available Not Available Not Avai lable Mirena 21 mcg/24 hr (up to 8 years) 52 mg intrauteri ne device Take 1 device by intrauter ine route. 01/04 completed See chart notes. Not Available Not Available Not Available trazodone 50 mg tablet TAKE 1 TABLET BY MOUTH EVERYDAY AT BEDTIME active Not Available Not Available No t Available azithromyc in 250 mg tablet TAKE 2 TABLETS (500 MG) BY ORAL ROUTE ONCE DAILY FOR 1 DAY THEN 1 TABLET (250 MG) BY ORAL ROUTE ONCE DAILY FOR 4 DAYS 09/29 completed Not Available Not Available Not Available ibuprofen 800 mg tablet 09/29 completed Not Available Not Available Not Available fluconazol e 150 mg tablet Take 1 tablet by oral route. 09/29 completed Not Available Not Available Not Available benzonatat e 200 mg capsule 09/29 completed Not Available Not Available Not Available metronidaz ole 0.75 % (37.5 mg/5 gram) vaginal gel Insert 1 applicato rful every day by vaginal route at bedtime. 05/10 completed Not Available Not Available Not Available ketorolac 10 mg tablet Take 1 tablet every 6 hours by oral route for 7 days. 09/29 completed Not Available Not Available Not Available oxycodone- acetaminop hen 5 mg-325 mg tablet 09/29 completed Not Available Not Available Not Available imiquimod 5 % topical cream packet APPLY TO THE AFFECTED AREA(S) BY TOPICAL ROUTE 5 TIMES PER WEEK 05/10 completed Not Available Not Available Not Available pantoprazo le 40 mg tablet,del ayed release TAKE 1 TABLET BY MOUTH EVERY DAY 05/10 completed Not Available Not Available Not Available nystatin 100,000 unit/gram topical cream APPLY TO THE AFFECTED AREA(S) BY TOPICAL ROUTE 2 TIMES PER DAY 09/29 completed Not Available Not Available Not Available gabapentin 300 mg capsule TAKE 1 CAPSULE BY MOUTH THREE TIMES DAILY 09/29 completed Not Available Not Available Not Available methylpred nisolone 4 mg tablets in a dose pack 09/29 completed Not Available Not Available Not Available amoxicilli n 875 mg-potassi um clavulanat e 125 mg tablet 09/29 completed Not Available Not Available Not Available enoxaparin 40 mg/0.4 mL subcutaneo us syringe INJECT CONTENTS OF 1 SYRINGE BY SUB Q ROUTE ONCE DAILY FOR 10 DAYS 05/10 completed Not Available Not Available Not Available NuvaRing 0.12 mg-0.015 mg/24 hr vaginal Insert 1 vaginal ring every month by vaginal route. 09/29 completed Not Available Not Available Not Available bupropion HCl XL 300 mg 24 hr tablet, extended release TAKE 1 TABLET BY MOUTH DAILY 09/29 completed Not Available Not Available Not Available Vitamin B-12 active OTC Not Available Not Available Not Available Calcium Citrate + D active Not Available Not Available Not Available Calcium with Vitamin D 600 mg-10 mcg (400 unit) tablet Take 1 tablet twice a day by oral route. 05/10 completed Not Available Not Available Not Available Lo Loestrin Fe 1 mg-10 mcg (24)/10 mcg (2) tablet Take 1 tablet every day by oral route. 09/29 completed Not Available Not Available Not Available Nexplanon 68 mg subdermal implant Inject 1 implant by subcutane ous route. active Not Available Not Available No t Available Annovera 0.15 mg-0.013 mg/24 hr vaginal ring Insert 1 vaginal ring x 12 months 11/09 completed Not Available Not Available Not Available Vitals Date Recorded Body height Body mass index (BMI) Body weight Respiratory rate Heart rate Systolic blood pressure Diastolic blood pressure Provider Name and Address Organization Details Last Updated DateTime 0 167.64 cm 46.6 kg/m2 000548. 19 g 14 /min 80 /min 136 mm[Hg] 80 mm[Hg] Kurtis Ryan [facility] SI 0 10:17:32 Date Recorded Body height Body mass index (BMI) Body weight Systolic blood pressure Diastolic blood pressure Provider Name and Address Organization Details Last Updated DateTime 05/10/2021 167.64 cm 32.1 kg/m2 09647.88 g 108 mm[Hg] 78 mm[Hg] Tita Damon MA [facility] SI 1 10:36:15 Date Recorded Body height Body mass index (BMI) Body weight Systolic blood pressure Diastolic blood pressure Provider Name and Address Organization Details Last Updated DateTime 11/09/2021 167.64 cm 29.1 kg/m2 58968.63 g 106 mm[Hg] 72 mm[Hg] Zoe Williamson MA [facility] 2 10:13:36 Date Recorded Body height Body mass index (BMI) Body weight Systolic blood pressure Diastolic blood pressure Provider Name and Address Organization Details Last Updated DateTime 11/30/2021 167.64 cm 29.2 kg/m2 15264.22 g 104 mm[Hg] 68 mm[Hg] Zoe Williamson MA [facility] 2 09:42:01 Date Recorded Body height Body mass index (BMI) Body weight Systolic blood pressure Diastolic blood pressure Provider Name and Address Organization Details Last Updated DateTime 01/04/2022 167.64 cm 28.7 kg/m2 70174.44 g 112 mm[Hg] 74 mm[Hg] Tita Damon MA [facility]IF 2 09:59:47 Social History Question Answer Notes LastModified by Organizat ion Details LastModified Time Tobacco Smoking Status Former Smoker Kurtis Ryan shira [facility] SI 07/26/2014 15:57:09 Do You Have An Advance Directive? No Information not available 01/05/2016 What Is Your Level Of Alcohol Consumption? None Information not available 01/05/2016 Is Blood Transfusion Acceptable In An Emergency? Yes Information not available 01/05/2016 What Is Your Level Of Caffeine Consumption? Moderate Information not available 01/05/2016 How Much Tobacco Do You Chew? None Information not available 01/05/2016 Are You Currently Employed? Yes Information not available 01/05/2016 What Type Of Diet Are You Following? REGULAR Information not available 01/05/2016 Do You Or Have You Ever Used E-cigarettes Or Vape? Never Used Electronic Cigarettes Information not available 09/29/2019 Education 12 Information no t available 01/05/2016 Live Alone Or With Others? With Others Information not available 01/05/2016 What Was The Date Of Your Most Recent Tobacco Screening? 11/09/2021 Information not available 11/09/2021 How Many Children Do You Have? 1 Information not available 01/05/2016 Performs Monthly Self-breast Exam? Yes Information no t available 01/05/2016 Do You Use Protection During Sex? Usually Information not available 01/05/2016 What Is Your Relationship Status? Single Information not available 01/05/2016 Seat Belts Used Routinely Yes Information not available 01/05/2016 Are You Sexually Active? Yes Information not available 01/05/2016 Do You Have Smoke And Carbon Monoxide Detectors In Your Home? Yes Information not available 05/10/2021 Are You Passively Exposed To Smoke? No Information no t available 05/10/2021 Do You Or Have You Ever Used Smokeless Tobacco? Never Used Smokeless Tobacco Information not available 09/29/2019 How Much Tobacco Do You Smoke? No Information not available 09/29/2019 General Stress Level Medium Information not available 01/05/2016 Do You Use Any Illicit Or Recreational Drugs? No Information not available 05/10/2021 Do You Use Sunscreen Routinely? Yes Information not available 01/05/2016 Has Tobacco Cessation Counseling Been Provided? No Information not available 11/09/2021 On What Date Was Tobacco Cessation Counseling Provided? 11/09/2021 Information not available 11/09/2021 How Many Years Have You Smoked Tobacco? 0 Information not available 09/29/2019 Do You Or Have You Ever Used Any Other Forms Of Tobacco Or Nicotine? No Information not available 11/09/2021 Sex: Unknown Functional Status Question Answer Note LastModified by Organizat ion Details LastModified Time What is your exercise level? Occasional Information not available 01/05/2016 Mental Status None recorded. Family History Nothing Reported. Medical History Condition Response Coronary Artery Disease N Kidney Cyst N Blood Diseases N Hyperthyroidism N Blood disorders N Blood Transfusion N MRSA N Emphysema N Depression Y COPD N Blood Clots N Pneumonia N Premature N Peripheral Arterial Disease N Edema N TIA N Headaches/Migraines N Anxiety Disorder N Obesity Y Polyps N Infertility N Acid Reflux (GERD) N Hematuria N Stroke N Neck Injury N Polio N Hospital Admission other than N Neurologic Disorder N Other Sleep Disorders N Rheumatoid Arthritis N Fibromyalgia N Abdominal Aortic Aneurysm Repair N Kidney Disease N Heart Conditions N Heart Disease/Heart Problems N Hospitalizations N Brain Tumors N Acne N Skin Problems N Eating Disorder N Meningitis N Constipation N Tuberculosis N Cerebral Palsy N Myocardial Infarction N Asthma N Substance Abuse N Peripheral Vascular Disease N Vertigo N Sleep Disorder N Cirrhosis N Pulmonary Embolism N Chicken Pox N Hematologic Disease N Flomax Use Past or Present N Anxiety/Depression N Thyroid Disease N Colon Cancer N Lung Disease N Glaucoma N Developmental or Behavioral Disorders N Bipolar N Pacemaker N Diverticulitis/Diverticulosis N Orthopedic Problems N Anesthesia Complications N Orthotics N Head Injury/Concussion N Congenital Anomalies N Leblanc Bite N Chronic Kidney Disease N Endometriosis N Liver Disease N Schizophrenia N Dialysis N Speech Delay N Chronic Obstructive Pulmonary Disease N Parkinson's Disease N Thyroid Problems N GI Problems N Developmental Delay N Anemia N Multiple Sclerosis N Immune System Disorder N Colon Polyps N Heart Attack ([place]) N Diabetes N Cardiomyopathy N Blood Transfusions N Heart Problems/Murmur N Eye Trauma N Congestive Heart Failure (CHF) N Valvular Heart Disease N Hyperlipidemia N Double Vision N Abuse/Domestic Violence N Hepatitis B N Lupus N Epilepsy/Seizures N Reflux/GERD N Aneurysm N Heart Disease N Bronchitis N Pre-Eclampsia N Hypertension N Heart Failure N Other Y Gout N High Blood Pressure Y Atrial Fibrillation N Kidney Stones N Head Trauma/Injury N Congenital Heart Disease N Spine Problems N Gastrointestinal Disease N Lung Mass N Sinusitis N Obstructive Sleep Apnea N Muscle, Joint, or Bone Problems N Autoimmune disease N Vision or Eye Problems N Arthritis N Blood Clot N Cancer N Seasonal allergies N Leg or Foot Ulcers N Raynaud's Disease N Aortic Aneurysm N Arrhythmia N Headaches N Heart Problems N [place] N Ear or Hearing Problems N Hyperparathyroidism N Migraines N Artificial Joints N Kidney or Bladder Problems N NSAID Use N Encephalitis N PTSD N Ulcers N Prostate Hypertrophy N Bleeding Disorder N AIDS/HIV N Urinary Tract Infection N Back Problems N Allergies N Atrial Flutter N GERD/Reflux N Hepatitis N Autism Spectrum Disorder (ASD) N Breast Cancer N Hernia N Hypothyroidism N Breast Problem N Genitourinary Disease N Deep Vein Thrombosis N Varicose Veins N Cystic Fibrosis N Hearing Loss N Developmental Problems N Carotid Disease N Vitamin D Deficiency Y ADHD N Bladder or Kidney Problems N High Cholesterol N [place] N Valvular Abnormalities N Psychiatric/Mental Health Condition N Organ Transplant N Foot Deformity N Allergies/Hayfever N Dyslipidemia N Hyponatremia N Diabetic Eye Disease N Osteoporosis/Osteopenia N Back Pain N Proteinuria N Mental Illness N Neurological Problems N Ovarian Cancer N Bedwetting N Seizures/Epilepsy N Kidney Failure N Ocular trauma N Diverticulitis N Dementia N Sleep Apnea N Mental Problems N Warfarin Management N Osteoporosis N Gynecological History Statement/Question Response Abnormal Pap Y Date of Last Mammogram 05/18/2021 Date of LMP 01/03/2022 STIs/STDs Y HPV Vaccine N Duration of Flow (days) 3 Most Recent Mammogram Age at Menarche 11 Current Control Method Implant Age at First Child 27 Sexually Active? Y Menses Monthly Y Date of Last Pap Smear 09/29/2019 Sexual Problems? N LMP Definite Obstetrics History GPAL:G 1 P 1 0 0 1 Type Value Multiple Births 0 Full Term 1 Induced 0 Spontaneous 0 Premature 0 Living 1 Ectopics 0 Total 1 Immunizations Vaccine Type Date Status Note Provider Nam e and Address Organization Details Recorded Time Influenza, split virus, quadrivalent, preservative 9 completed Kurtis Ryan null, [place] - [facility] 09/29/2019 10:19:49 COVID-19, mRNA, LNP-S, PF, 30 mcg/0.3 mL dose 1 completed Thomas Celeste [place], [place] - [facility] 02/21/2021 12:46:08 COVID-19, mRNA, LNP-S, PF, 30 mcg/0.3 mL dose 1 completed Thomas Celeste [place], [place] [facility] 02/21/2021 12:46:30 HPV9 0 completed Zoe Williamson [place] null, [place] - [facility] 10/01/2019 12:59:16 Past Encounters Encounter ID Performer Location Encounter Start Date Encounter Closed Date Diagnosis/Indication Diagnosis SNOMED-CT Code Diagnosis ICD10 Code Diagnosis Note [id number] MARS De La Fuente (SPECIAL EDUCATION ADMINISTRATOR) [address] [place] [address] [id number] 07/26/2014 12:16:01 07/26/2014 14:36:20 Gynecologic examination [id number] Premenstru al dysphoric disorder [id number] Kurtis Bob (SPECIAL EDUCATION ADMINISTRATOR) [address] [place] [address] [id number] 07/31/2015 15:01:45 07/31/2015 18:07:10 Family planning surveillance 027991210 Z30.09 Premenstru al dysphoric disorder 045942 N94.3 [id number] Kurtis Bob (SPECIAL EDUCATION ADMINISTRATOR) [address] [place] [address] [id number] 01/29/2016 15:30:43 01/29/2016 18:26:05 Family planning surveillance 850220243 Z30.09 [id number] Kurtis Bob (SPECIAL EDUCATION ADMINISTRATOR) [address] [place] [address] [id number] 09/29/2019 10:02:30 10/14/2019 12:27:35 Gynecologic examination [id number] Z01.419 [id number] Screening mammography 24 443980 Z12.31 Exposure t o sexually transmissible disorder 502263611 Z20.2 Condyloma acuminatum of the anogenital region 861304445 A63.0 Perimenopausal state 207 9526321 81318 Z78.0 Hot flashes and spotting monthly. Does not want to start norethindr one, claims is forgetful. Option for Combi if worsening symptoms. Administra tion of viral vaccine [id number] Z23 #1 given 09/29. [id number] LOGAN VOGT (SPECIAL EDUCATION ADMINISTRATOR) [address] [place] [address] [id number] 0 05/10/2021 10:13:54 05/14/2021 08:21:33 Screening for malignant neoplasm of breast 069736039 Z12.31 Pt requests mammogram order for yearly screening. Venereal d isease screening 254552389 Z11.3 Pt requests full STI testing, currently asymptomat ic. Safe sex practices discussed. Contracept ion care management 455616191 Z30.9 Discussed different control options with patient such as OCPs, patch, ring, Depo Provera shot, Nexplanon, and IUDs. Pt interested in starting Annovera yearly ring. Counseled on use and side effects. RTC in 3 months. [id number] LOGAN VOGT (SPECIAL EDUCATION ADMINISTRATOR) [address] [place] [address] [id number] 0 11/09/2021 10:01:00 11/19/2021 13:10:40 Contraception care management 192474085 Z30.9 Patient has been using the Annovera ring since May 2021. Has had hot flashes, irritabili ty, and spotting that approximat lydia correspond s with her Annovera use. Also reports discomfort with the ring. Discussed different control options with patient such as OCPs, patch, Depo Provera shot, Nexplanon, and IUDs including SE and RF. Patient interested in the IUD. Order placed, pt to be scheduled for insertion. Abnormal u terine bleeding [id number] 9100 N93.9 Patient has had daily spotting since July 2021. Likely iatrogenic cause from Annovera ring. Discontinu e Annovera ring. US ordered to rule out endometria l/uterine pathology prior to Mirena insertion. [id number] LOGAN VOGT (SPECIAL EDUCATION ADMINISTRATOR) [address] [place] [address] [id number] 0 11/30/2021 09:20:46 12/12/2021 15:33:28 Contraception care management 382387637 Z30.9 Mirena insertion attempted in clinic today. Unable to insert Mirena secondary to a stenotic internal cervical os with pt intoleranc e of dilation. (See procedure note for more details). Educated on other options for contracept ion management . Pt opted to stay on Nexstellis OCPs as bleeding and pain is well controlled with this. Pt will follow up if she wants to proceed with a different form of contracept ion. [id number] LOGAN VOGT (SPECIAL EDUCATION ADMINISTRATOR) [address] [place] [address] [id number] 0 01/04/2022 09:44:27 01/10/2022 10:54:00 Insertion of subcutaneous contraceptive [id number] Z30.9 Pt presents seeking Nexplanon insertion. Counseled on R/B/A. Device inserted successful ly as described in the procedural note. Nexplanon palpated in its entire length in right upper extremity, no neurovascu lar compromise . Pt will RTC in 4 weeks, or sooner if symptoms develop. Health Concerns Section Related Observation LastModified by Organization Detai ls LastModified Time None Recorded Concern Status LastModified by Organization Details LastModified Time None Recorded Advance Directives Directive N: Payers Encounter Date Sequence Insurance Name Policy Number Policy Velez Covered Member ID Velez Member ID Guarantor Name 05/10/2021 1 [place] [id number] Diana H Rodriguez [id number] Diana Rodriguez 11/09/2021 1 [place] [id number] Diana H Rodriguez [id number] Diana Rodriguez 11/30/2021 1 [place] [id number] Diana H Rodriguez [id number] Diana Rodriguez 01/04/2022 1 [place] [id number] Diana H Rodriguez [id number] Diana Rodriguez Notes Date Note Type Note Provider Name and Address Organization Details Recorded Time 09/29/2019 text/html Annual GYNReport ed bypatient.Menstrual cycle:Perimenopausa l; spotting x 1 month Urinary symptoms:No hematuria; No incontinence Vulva:No genital lesion Vagina:Normal vaginal discharge Breast:No breast pain; No breast lump; No nipple discharge Current Contraception:Monog amous relationship Sexual complaints:No sexual complaints; No pain during intercourse; Normal libido Menopausal Symptoms:No menopausal symptoms; Normal vaginal lubrication Psychological symptoms:No depression; No anxiety; No PMDD Preventive measures:Encourage self breast examination; Encourage regular exercise; Encourage no tobacco use; Encourage regular mammograms starting age 40; Followed with Q3 year pap smear and high risk HPV typing; Needs to schedule mammogram 44yo female with history of dysmenorrhea, menorrhagia, HPV and endometrial ablation here for WWE. No control. Sexually active. No discharge, pruritus, dyspareunia, dysuria. Has been experiencing mild hot flashes and spotting monthly. Kurtis Shelby silva, [place] - [facility] 09/30/2019 12:33:27 05/10/2021 text/html 46yo F presents for STD testing and control discussion. She reports unprotected sex a few weeks ago and would like full work-up. She is not having any symptoms. She would also like to start control. She had gastric bypass surgery in October and has lost 90 pounds. She states periods have since returned. LMP 05/05/2021. She does not want more kids and would like contraception until menopause. Last Pap 09/29/2019, negative. LOGAN VOGT Attn: [address] [place], [address], [facility] 05/10/2021 12:12:04 11/09/2021 text/html Diana is a pleas ant 46 yo female presenting for spotting, hot flashes, and irritability x~4 months since starting Annovera contraceptive. Reports history of endometrial ablation ~6 years ago. While she was initially amenorrheic following the procedure, she began having light monthly periods again after about 3 years. Her periods had been regular, lasting about 3 days at a time. Patient explains that she began using the Annovera ring in May 2021 for contraception. However, since July 2021 she has been spotting every day. She has also been experiencing mood swings and hot flashes multiple times per day over the same timeframe. The hot flashes include night sweats that impact her sleep. Seeking new control option and willing to try anything. Pt denies pelvic pain, abnormal discharge, vaginal symptoms, n/v/f, SOB, or chest pain. LOGAN VOGT Attn: [address] [place], [address], [facility] 11/21/2021 22:37:35 11/30/2021 text/html Diana Calderon is a 46yo presenting for Mirena insertion. Mirena requested for contraception and control of menorrhagia. Pt reports no complaints. Pt denies current abnormal vaginal discharge, pelvic pain, GILMORE. Pt currently using Nexstellis OCPs. LOGAN VOGT Attn: [address] [facility], [place], [address], [facility] 12/11/2021 17:05:18 01/04/2022 text/html 46 y/o female presents today for a contraception visit. She has been compliant with her Nextstellis OCP, but is interested in switching to Nexplanon due to convenience. During her last visit, we attempted to insert a Mirena, however was unsuccessful due to intolerance and stenotic internal cervical os. She has regular cycles, with LMP beginning yesterday. She denies any abdominal pain, dysuria, hematuria, vaginal discharge or bleeding. LOGAN VOGT Attn: [address]ing[address] [facility], [place], [address], [place] - [facility] 01/08/2022 14:42:47 OBGyn Episode Ob Episode Information Episode Created Date Number of Fetuses Patient Bloodtype Patient rh Status Prepregnancy Weight lbs Domestic Partner Domestic Partner Phone Father Name Coil Winder Status 01/05/20 16 1 CLOSED Fetus Data First Name Last Name Admitted to NICU Weight (g) Sex Living Outcome Pediatric Complications Fetus ID Race Codes Race Delivery Type 4082.32 8 Full Term [id number] Primary Дмитрий Calculation Initial Дмитрий Date Initial Exam Date Initial Exam Provider Initial Ultrasound Date Last Menstrual Period Date Ultra Sound Weeks Gestation 0 Eighteen To Twenty Week Дмитрий Update Ultra Sound Date Fundal Height At Umbil Quickening Date Ultra Sound Latest Weeks Gestation Final Дмитрий Confirmed By Final Дмитрий Confirmed Date Final Дмитрий Date Ultra Sound Latest Days Gestation 0 0 Menstrual History Last Menstrual Date Menses Monthly On Bcp Conception Prior Menses Frequency Hcg Plus Date Menarche Onset Age Delivery Information Delivery Date Delivery Type Labor Anesthesia Weeks Gestation Incision Type Labor Labor Length Hrs Delivered By Post Complications Tubal Sterilization Discharge Date Comments 2 Regional-Sp inal 40 false 36 cpd Discharge Information Feeding Method Contraceptive Method Maternal HG B and HCT Levels
--- OUTSIDE RECORDS SUMMARY | 2024-12-10 08:12 | XMS_ITS | Data Portability ---
Author Organization [place] - [facility] [employer], Main Office Address [address] [place] [address] Assessment No assessment recorded. Plan of Treatment Reminders Order Date Submit Date Provider Last Modified By Organization Details Last Modified Time Details Appointments None recorded. Lab lipid panel, serum [address] (Lab), [address] [place] [address], [address], 5 14:01:49 TSH, serum or plasma [address] (Lab), [address] [place] [address], [address], 5 14:01:49 HbA1c (hemoglobi n A1c), blood [address] (Lab), [address] [place] [address], [address], 5 14:01:50 T4, free, serum [address] (Lab), [address] [place] [address], [address], 5 14:01:50 CBC w/ auto diff [address] (Lab), [address] [place] [address], [address], 5 14:01:50 vitamin D, 25-hydroxy , total, serum 2023 024 [facility] (Lab), [address] [place] [address], [address], 4 15:49:20 vitamin B12, serum 2023 024 [facility] (Lab), [address] [place] [address] [address], [address], 4 15:49:20 magnesium, serum or plasma [address] (Lab), [address] [place] [address], [address], 4 14:09:50 CBC w/ auto diff 2023 024 [facility] (Lab), [address] [place] [address], [address], 4 15:49:20 CMP, serum or plasma 2023 024 [facility] (Lab), [address] [place] [address], [address], 4 15:49:20 T4, free, serum 2023 024 [facility] (Lab), [address] [place] [address], [address], 4 12:35:53 TSH, ultra-sens itive, serum 2023 024 [facility] (Lab), [address] [place] [address], [address], 4 15:49:20 lipid panel, serum 2023 024 [facility] (Lab), [address] [place] [address], [address], 4 15:49:20 Referral None recorded. Procedures None recorded. Surgeries None recorded. Imaging None recorded. Medication Orders baclofen 10 mg tablet 2023 024 [email or web address] [facility]/Pharmacy #[id number], [address] [place], [address], 15:13:09 Patient TargetsNo targets recorded. Patient Instructions Encounter Date Encounter Id Patient Instructions Last Modified By Organization Details Last Modified Time 12/06/2022 [id number] Follow-up for postsurgical malabsorption -insomnia. Clinically stable. Has had recent blood work performed which looked excellent. Continue on current medications and follow-up in six months [email or web address] Not available 12/06/2022 15:40:36 06/06/2023 [id number] risk assessment* [email or web address] Not availabl e 06/06/2023 12:15:31 INFLUENZA VACCIN E TD/TDAP Recommended today, patient declined Ordered Pa tient will get at local pharmacy/health department PNEUMONIA VACCINE Ordered Recommended today, patient declined Patient will get at local pharmacy/health department Recommen ded at age 66 SHINGLES Ordered Recommended today, patient declined Patient will get at local pharmacy/health department MAMMOGRAM: Last Mammogram DEXA SCAN Recommended today, but patient declined Ordered No screening indicated CERVICAL SCREENING/PELVIC EXAMINATION Recommended today, but patient declined Ordered No screening necessary patient is up to date COLORECTAL SCREENING: Last Colonoscopy DEPRESSION SCREENING Negative BMI Overweight continue your current weight loss efforts try to lose 5% of your body weight try to lose 10% of your body weight NUTRITION Continue healthy eating & exercise PHYSICAL ACTIVITY Need more exercise/physical activity VISION ALCOHOL USE No alcohol use TOBACCO USE non smoker LUNG CANCER SCREENING Non Smoker-not indicated SEXUALLY ACTIVE HEPATITIS C SCREENING Not indicated GLUCOSE SCREENING LIPID SCREENING [email or web address] Not available 06/06/2023 12:08:06 Adult health examination risk assessment stable. Follow-up for anxiety as well as post bypass bariatric surgery. All clinically stable. Had blood work performed back in October which looked fine. Will continue on current Rx does need a mammogram and Cologuard test. Follow-up in six months Portions of the record may have been created with voice recognition software. Occasional wrong-word or onlxh-s-apey substitutions may have occurred due to the inherent limitations of voice recognition software. Read the chart carefully and recognize, using context, where substitutions have occurred. Mammogram Cologuard Next Appt: 6 Months Approximate Date: 12/03/2023 [email or web address] Not available 06/06/2023 12:15:04 03/09/2024 [id number] Bilateral should er pain and obesity class one clinically stable. Because of her previous gastric bypass need some blood work in the form of CBC, CMP, lipid, thyroid and B12 level. Otherwise appears to be doing well. Will continue on current Rx. Will give a trial some baclofen 10 mg q.i.d. On a p.r.n. Basis for the muscular pain. Will give a trial of the GB LP one inhibitor but it is unlikely that her insurance will cover this in light of the fact that she has had bypass as well as is only obesity class one. Follow-up in six months Additional Orders and/or Directives: 1. Cologuard Next Appointment: 6 Months Approximate Date: 09/05/2024 Portions of the record may have been created with voice recognition software. Occasional wrong-word or wjpis-l-gqtz substitutions may have occurred due to the inherent limitations of voice recognition software. Read the chart carefully and recognize, using context, where substitutions have occurred. [email or web address] Not available 03/09/2024 10:57:25 09/21/2024 [id number] Follow-up for obesity class one clinically stable. Check blood work consisting of CBC, CMP, lipid, thyroid and hemoglobin A1c. Follow-up in one year Additional Orders - Directives - Recommendations 1. follow-up in six months to one year Portions of record are template driven. When necessary additional context will be provided. Additionally some portions have been created with voice recognition software. Occasional wrong-word or kobho-h-eaxu substitutions may have occurred due to the inherent limitations of voice recognition software. Read the chart carefully and recognize, using context, where substitutions may have occurred. Created: Wily Oliver M.D. 09.21.2024 04:09 PM [email or web address] Not available 09/21/2024 17:09:15 Reason for Referral None Reported. Results Created Date Observation Date Name Description Value Unit Range Abnormal Flag Note LastModifiedBy Organization Detail LastModifiedTime 06/05/20 24 06/05/2024 COLOG UARD cologuard result Cancel led - Order d not applic able Not Available [facility] (Cologuard Orders Only) [address], [place], [address], 06/05/2024 07:39:46 03/25/20 24 03/25/2024 COLOG UARD cologuard result Cancel led - Duplic ate Order not applic able Not Available [facility] (Cologuard Orders Only) [address], [place], [address], 03/25/2024 09:00:38 10/03/19 23 10/03/2022 COMPR EHENS GISELLE METAB OLIC PANEL sodium 136 mmol/ L 137-14 5 low Not Available [facility] (Lab) [address] [place], [address], 10/03/2022 17:05:14 10/03/19 23 10/03/2022 COMPR EHENS GISELLE METAB OLIC PANEL potassium 4.3 mmol/ L 3.5-5. 1 Not Available [facility] (Lab) [address] [place], [address], 10/03/2022 17:05:14 10/03/19 23 10/03/2022 COMPR EHENS GISELLE METAB OLIC PANEL chloride 105 mmol/ L 98-107 Not Available [facility] (Lab) [address] [place], [address], 10/03/2022 17:05:14 10/03/19 23 10/03/2022 COMPR EHENS GISELLE METAB OLIC PANEL carbon dioxide 26 mmol/ L 22-30 Not Available [facility] (Lab) [address] [place], [address], 10/03/2022 17:05:14 10/03/19 23 10/03/2022 COMPR EHENS GISELLE METAB OLIC PANEL anion gap 9.3 mmol/ L 14-22 low Not Available [facility] (Lab) [address] [place], [address], 10/03/2022 17:05:14 10/03/19 23 10/03/2022 COMPR EHENS GISELLE METAB OLIC PANEL glucose 86 mg/dL 70-99 Not Available [facility] (Lab) [address] [place], [address], 10/03/2022 17:05:14 10/03/19 23 10/03/2022 COMPR EHENS GISELLE METAB OLIC PANEL BUN 22 mg/dL 8-19 high Not Available [facility] (Lab) [address] [place], [address], 10/03/2022 17:05:14 10/03/19 23 10/03/2022 COMPR EHENS GISELLE METAB OLIC PANEL creatinine 0.73 mg/dL 0.66-1 .25 Not Available [facility] (Lab) [address] [place], [address], 10/03/2022 17:05:14 10/03/19 23 10/03/2022 COMPR EHENS GISELLE METAB OLIC PANEL GFR >60 Refer ence Range : Rhodell ge GFR Healt hy Adult : >60 [...] or ethni c subgr oups, such as [facility] nics. Outsi de the valid ated jackie [...] on the F websi te: https ://yomi ricks.michel rojas/pr ofess ional s/kdo qi/gf r_cal culat or Not Available [facility] (Lab) [address] [place], [address], 10/03/2022 17:05:14 10/03/19 23 10/03/2022 COMPR EHENS GISELLE METAB OLIC PANEL alkaline phosphatase 45 U/L 38-126 Not Available [facility] (Lab) [address] [place], [address], 10/03/2022 17:05:14 10/03/19 23 10/03/2022 COMPR EHENS GISELLE METAB OLIC PANEL alanine aminotransfe rase 31 U/L 0-35 Not Available [facility] (Lab) [address] [place], [address], 10/03/2022 17:05:14 10/03/19 23 10/03/2022 COMPR EHENS GISELLE METAB OLIC PANEL aspartate aminotransfe rase 29 U/L 15-37 Not Available [facility] (Lab) [address] [place], [address], 10/03/2022 17:05:14 10/03/19 23 10/03/2022 COMPR EHENS GISELLE METAB OLIC PANEL bilirubin, total 0.90 mg/dL 0.20-1 .30 Not Available [facility] (Lab) [address] [place], [address], 10/03/2022 17:05:14 10/03/19 23 10/03/2022 COMPR EHENS GISELLE METAB OLIC PANEL calcium 8.4 mg/dL 8.4-10 .2 Not Available [facility] (Lab) [address] [place], [address], 10/03/2022 17:05:14 10/03/19 23 10/03/2022 COMPR EHENS GISELLE METAB OLIC PANEL total protein 5.4 g/dL 6.3-8. 2 low Not Available [facility] (Lab) [address] [place], [address], 10/03/2022 17:05:14 10/03/19 23 10/03/2022 COMPR EHENS GISELLE METAB OLIC PANEL albumin 3.3 g/dL 3.4-5. 0 low Not Available [facility] (Lab) [address] [place], [address], 10/03/2022 17:05:14 10/03/19 23 10/03/2022 COMPR EHENS GISELLE METAB OLIC PANEL globulin 2.1 g/dL 2.6-4. 2 low Not Available [facility] (Lab) [address] [place], [address], 10/03/2022 17:05:14 10/03/19 23 10/03/2022 COMPR EHENS GISELLE METAB OLIC PANEL A/G ratio 1.6 ratio 1.0-2. 0 Not Available [facility] (Lab) [address] [place], [address], 10/03/2022 17:05:14 10/03/19 23 10/03/2022 CBC/C OMPLE TE BLD COUNT W/DIF F white blood cells 9.2 x10'3 /uL 4.2-10 .8 Not Available [facility] (Lab) [address] [place], [address], 10/03/2022 15:07:31 10/03/19 23 10/03/2022 CBC/C OMPLE TE BLD COUNT W/DIF F red blood cells 4.92 x10'6 /uL 3.80-5 .20 Not Available [facility] (Lab) [address] [place], [address], 10/03/2022 15:07:31 10/03/19 23 10/03/2022 CBC/C OMPLE TE BLD COUNT W/DIF F hemoglobin 14.1 g/dL 12.0-1 5.6 Not Available [facility] (Lab) [address] [place], [address], 10/03/2022 15:07:31 10/03/19 23 10/03/2022 CBC/C OMPLE TE BLD COUNT W/DIF F hematocrit 44.5 % 35.7-4 5.7 Not Available [facility] (Lab) [address] [place], [address], 10/03/2022 15:07:31 10/03/19 23 10/03/2022 CBC/C OMPLE TE BLD COUNT W/DIF F mean red cell volume 90.4 fL 82.0-9 9.0 Not Available [facility] (Lab) [address] [place], [address], 10/03/2022 15:07:31 10/03/19 23 10/03/2022 CBC/C OMPLE TE BLD COUNT W/DIF F mean red cell hemoglobin 28.7 pg 27.0-3 3.0 Not Available [facility] (Lab) [address] [place], [address], 10/03/2022 15:07:31 10/03/19 23 10/03/2022 CBC/C OMPLE TE BLD COUNT W/DIF F mean RBC HGB concentratio n 31.7 g/dL 31.0-3 6.0 Not Available [facility] (Lab) [address] [place], [address], 10/03/2022 15:07:31 10/03/19 23 10/03/2022 CBC/C OMPLE TE BLD COUNT W/DIF F red cell distribution width 12.5 % 11.8-1 5.5 Not Available [facility] (Lab) [address] [place], [address], 10/03/2022 15:07:31 10/03/1910/03/2022 CBC/C OMPLE TE BLD COUNT W/DIF F platelets 257 x10'3 /uL 150-40 0 Not Available [facility] (Lab) [address] [place], [address], 10/03/2022 15:07:31 10/03/19 23 10/03/2022 CBC/C OMPLE TE BLD COUNT W/DIF F mean platelet volume 9.6 fL 9.0-12 .4 Not Available [facility] (Lab) [address] [place], [address], 10/03/2022 15:07:31 10/03/1910/03/2022 CBC/C OMPLE TE BLD COUNT W/DIF F neutrophils 65.5 % 39.0-7 2.0 Not Available [facility] (Lab) [address] [place], [address], 10/03/2022 15:07:31 10/03/1910/03/2022 CBC/C OMPLE TE BLD COUNT W/DIF F lymphocytes 25.7 % 16.0-4 7.0 Not Available [facility] (Lab) [address] [place], [address], 10/03/2022 15:07:31 10/03/19 23 10/03/2022 CBC/C OMPLE TE BLD COUNT W/DIF F monocytes 6.7 % 5.0-12 .0 Not Available [facility] (Lab) [address] [place], [address], 10/03/2022 15:07:31 10/03/1910/03/2022 CBC/C OMPLE TE BLD COUNT W/DIF F eosinophils 1.3 % 1.0-7. 0 Not Available [facility] (Lab) [address] [place], [address], 10/03/2022 15:07:31 10/03/1910/03/2022 CBC/C OMPLE TE BLD COUNT W/DIF F basophils 0.5 % 0.0-2. 0 Not Available [facility] (Lab) [address] [place], [address], 10/03/2022 15:07:31 10/03/19 23 10/03/2022 CBC/C OMPLE TE BLD COUNT W/DIF F immature granulocytes 0.3 % 0.00-0 .50 Not Available [facility] (Lab) [address] [place], [address], 10/03/2022 15:07:31 10/03/1910/03/2022 CBC/C OMPLE TE BLD COUNT W/DIF F neutrophils, absolute count 6.04 x10'3 /uL 1.5-8. 0 Not Available [facility] (Lab) [address] [place], [address], 10/03/2022 15:07:31 10/03/19 23 10/03/2022 CBC/C OMPLE TE BLD COUNT W/DIF F lymphocytes, absolute count 2.37 x10'3 /uL 1.07-3 .43 Not Available [facility] (Lab) [address] [place], [address], 10/03/2022 15:07:31 10/03/19 23 10/03/2022 CBC/C OMPLE TE BLD COUNT W/DIF F monocytes, absolute count 0.62 x10'3 /uL 0.29-0 .99 Not Available [facility] (Lab) [address] [place], [address], 10/03/2022 15:07:31 10/03/1910/03/2022 CBC/C OMPLE TE BLD COUNT W/DIF F eosinophils, absolute count 0.12 x10'3 /uL 0.02-0 .53 Not Available [facility] (Lab) [address] [place], [address], 10/03/2022 15:07:31 10/03/19 23 10/03/2022 CBC/C OMPLE TE BLD COUNT W/DIF F basophils, absolute count 0.05 x10'3 /uL 0.01-0 .08 Not Available [facility] (Lab) [address] [place], [address], 10/03/2022 15:07:31 10/03/19 23 10/03/2022 CBC/C OMPLE TE BLD COUNT W/DIF F immature granulocytes ,absolute 0.03 x10'3 /uL 0.00-0 .05 Not Available [facility] (Lab) [address] [place], [address], 10/03/2022 15:07:31 10/03/19 23 10/03/2022 CBC/C OMPLE TE BLD COUNT W/DIF F nucleated red blood cells 0.0 % -0 Not Available [facility] (Lab) [address] [place], [address], 10/03/2022 15:07:31 10/03/19 23 10/03/2022 CBC/C OMPLE TE BLD COUNT W/DIF F NRBC# 0.00 x10'3 /uL Not Available [facility] (Lab) [address] [place], [address], 10/03/2022 15:07:31 06/27/20 23 06/27/2023 scremajo negron emeterio, [facility] [address] [place], [place] [address] [phone] Teo negron Name: DIANA POLK Jaki ion #: [id number] Sex: F : 1974 0 Dictat ed By: Kim Felipe Attend ing Physic ivon: HALLE OLIVER CE Orderi Physic ivon: HALLE OLIVER CE Exam Date: 2022 10:19 AM Exam Name: MG SCRN BREAST EMETERIO BILAT Admitt ing Diagno sis(es ): SCREEN ING MAMMOG ERAN WITH TOMOSY NTHESI S: REASON FOR EXAM: SCREEN ING MAMMOG ERAN COMPAR EDIE: 1; 2010 TECHNI QUE: Bilate ral CC and MLO views obtain ed. Images were obtain ed using a Digita l Tomosy nthesi s Unit. Standa rd 2D and 3D Tomosy nthesi s images were review ed. FINDIN GS: BREAST COMPOS ITION: The bilate ral breast s are hetero geneou sly dense, which may obscur e small masses . In the right breast , no asymme trical parenc hymal patter n, mansi ectura l distor tion, pleomo rphic microc alcifi cation s or masses . In the left breast , no asymme trical parenc hymal patter n, mansi ectura l distor tion, pleomo rphic microc alcifi cation s or masses . IMPRES EMBER: No findin gs of malign joseph. Recomm end annual mammog eran. BIRADS : 2 - Benign Electr onical ly Signed by: Kim Felipe at 2022 10:57: 41 AM Page [address] (Imaging) [address] [place], [address], 06/27/2023 13:56:01 11/18/19 25 11/13/2024 MAMMO , scree gilberto, bilat eral No observ ation record ed. [address] [facility] [address], [place], [address], 11/23/2024 13:54:24 11/27/19 25 11/13/2024 MAMMO , scree gilberto, bilat eral No observ ation record ed. [address], [place], [address], 11/27/2024 09:18:25 Result Notes None recorded. Problems Name Problem SNOMED Code Status Onset Date Resolution Date Notes Provider Name and Address Organization Details Recorded Time Acute bronchiti s 07067562 Active 2022 Not Available [facility] 3 14:47:01 Acute sinusitis 96710331 Active 2021 Not Available [facility] 3 14:47:01 Insomnia 016598649 Active 2021 Not Available [facility] 3 14:47:01 Anxiety disorder 133559256 Active Not Available [facility] 3 14:47:01 Morbid obesity 122698724 Completed 201905/29/2021 Not Available [facility] 3 14:47:01 Post-surg ical malabsorp tion 035184000 Active 2020 Not Available [facility] 3 14:47:01 Malaise and fatigue 541415221 Active Not Available [facility] 3 14:47:01 Vitamin D deficienc y 99486095 Active 2020 Not Available [facility] 3 14:47:01 Depressiv e disorder 01108361 Active Not Available [facility] 3 14:47:01 Body mass index 40+ - severely obese 910501449 Completed 201905/29/2021 Not Available [facility] 3 14:47:02 Initial insomnia 81259660 Active 2021 Not Available [facility] 3 14:47:02 History of bariatric surgical procedure 556527013 Active 2020 Not Available [facility] 3 14:47:02 Adverse reaction to drug 28110102 Active 2021 Not Available [facility] 3 14:47:02 Cholelith iasis without obstructi on 98290417 Active Not Available [facility] 3 14:47:02 COVID-19 925964156 Active 2022 Not Available [facility] 3 14:47:02 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 Not Available [facility] 3 14:47:03 Obese class I 32511899708 4107 Active 2023 Wily Oliver MD [address], [place], [address] , [facility] 4 10:51:55 Bilateral shoulder joint pain 74059848920 586806 Active 2023 Wily Oliver MD [address], [place], [address] , [facility] [employer] [facility] [employer] [facility] 4 10:54:44 Candidias is of vagina 81898462 Active 2024 Wily Oliver MD [address], [place], [address] , [facility] [employer] [facility] [employer] [facility] 5 14:56:51 Notes:Some problems listed i n Documents: #[id number], #[id number] could not be added to this patient's chart. Please review these documents and add these problems to the patient's chart manually as needed. Problem Notes None recorded. Procedures Surgical History Date Name Laterality Status Provider Name and Address Organization Details Recorded Time 11/22/19 21 LAPARASCOPIC FLORENCE-EN-Y GASTRIC BYPASS (SURG) completed Not Available [facility] 10/23/2022 14:50:34 Imaging Results Imaging Date Name Status [facility]Modified by [facility] Details LastModified Time 06/27/2023 screening breast emeterio, bilat completed [address] (Imaging) [address] [facility] [place], [address], 06/27/2023 13:56:01 11/13/2024 MAMMO, screening, bilateral completed [id number] [place] [address] Imaging [address], [place], [address], 11/23/2024 13:54:24 11/13/2024 MAMMO, screening, bilateral completed [id number] [place] [address] Imaging [address], [place], [address], 11/27/2024 09:18:25 Procedure Notes None recorded. Medical Equipment None Reported. Allergies Allergen ID Allergen Name Allergen Category Reaction Reaction Severity Criticality Documentation Date Start Date Code Code System Note Provider Name and Address Organization Details Recorded Time 82646 Tegaderm medicatio n Not available Not available Not available 10/23/2022 19807 UNK Not Available [facility] 3 14:50:28 55606 amoxicill in medicatio n Not available Not available Not available 10/23/2022 723 RxNorm Not Available [facility] 3 14:50:28 Medications Name Sig Start Date Stop Date Status Note LastModified by Organization Details LastModified Time Prescript ion - Prior Authoriza tion Request 04/01 completed [facility] DENIAL ZEPBOUND Not Available Not Available Not Available amoxicill in 500 mg capsule Take 1 capsule 3 times a day by oral route for 10 days. 12/23 completed Not Available Not Available Not Available Augmentin 875 mg-125 mg tablet Take 1 tablet every 12 hours by oral route. active Not Available Not Available No t Available Tylenol-C odeine #4 300 mg-60 mg tablet Take 1 tablet every 6 hours by oral route. 11/15 completed Not Available Not Available Not Available doxycycli ne hyclate 100 mg capsule TAKE 1 CAPSULE BY MOUTH TWICE A DAY 09/21 completed Not Available Not Available Not Available [...] Not Available Not Available No t Available azithromy shruti 250 mg tablet TAKE 2 TABLETS BY MOUTH TODAY, THEN TAKE 1 TABLET DAILY FOR 4 DAYS 06/06 completed Not Available Not Available Not Available tramadol 37.5 mg-acetam inophen 325 mg tablet TAKE 2 TABLETS BY MOUTH THREE TIMES DAILY NEEDED 03/09 completed Not Available Not Available Not Available fluconazo le 150 mg tablet Take 1 tablet every day by oral route. active Not Available Not Available No t Available benzonata te 200 mg capsule Take 1 capsule 3 times a day by oral route. 10/04 completed Not Available Not Available Not Available Wellbutri n SR 150 mg tablet, 12 hr sustained -release Take 1 tablet every day by oral [...] trazodone 100 mg tablet Take 1 tablet every day by oral route at bedtime. 03/09 completed Not Available Not Available Not Available baclofen 10 mg tablet Take 1 tablet 4 times a day by oral route as needed. 2024 active Not Available Not Available Not Avai lable Xanax 0.25 mg tablet Take 1 tablet 3 times a day by oral route. 11/15 completed Not Available Not Available Not Available pantopraz ole 40 mg tablet,de layed release TAKE 1 TABLET BY MOUTH EVERY DAY 06/20 completed Not Available Not Available Not Available Levaquin 500 mg tablet Take 1 tablet every 24 hours by oral route. active Not Available Not Available No t Available Capron 7.5 mg-325 mg tablet Take 1 tablet every 6 hours by oral route. 11/15 completed Not Available Not Available Not Available methylpre dnisolone 4 mg tablets in a dose pack Take by oral route as per package insert 10/04 completed Not Available Not Available Not Available albuterol sulfate HFA 90 mcg/actua tion aerosol inhaler INHALE 2 PUFFS BY MOUTH EVERY 6 HOURS 03/09 completed Not Available Not Available Not Available Lovenox 40 mg/0.4 mL subcutane ous syringe Inject 0.4 mL every day by subcutan eous route for 10 days. 11/15 completed Not Available Not Available Not Available NuvaRing 0.12 mg-0.015 mg/24 hr vaginal Insert 1 vaginal ring every month by vaginal route. 11/15 completed Not Available Not Available Not Available metoprolo l tartrate 25 mg tablet TAKE 1 TABLET BY MOUTH TWICE DAILY 11/15 completed Not Available Not Available Not Available topiramat e 50 mg tablet TAKE 1 TABLET BY MOUTH TWICE DAILY 11/15 completed Not Available Not Available Not Available Annovera 0.15 mg-0.013 mg/24 hr vaginal ring 10/04 completed Not Available Not Available Not Available Ozempic 0.25 mg or 0.5 mg (2 mg/3 mL) subcutane ous pen injector inject 0.25 mg once weekly for four weeks then patient to call office for further instruct ions 09/21 completed Not Available Not Available Not Available Zepbound 2.5 mg/0.5 mL subcutane ous pen injector INJECT THE CONTENTS OF 1 PEN UNDER THE SKIN ONCE WEEKLY 04/01 completed Not Available Not Available Not Available Vitals Date Recorded Body mass index (BMI) Body height Oxygen saturation Oxygen saturation in Arterial blood by Pulse oximetry Heart rate Body temperature Body weight Systolic blood pressure Diastolic blood pressure Provider Name and Address Organization Details Last Updated DateTime 3 29.3 kg/m2 167.64 cm 99 % 99 % 81 /min 97 [degF] 55555.0 2 g 122 mm[Hg] 74 mm[Hg] Not Available [facility] 3 14:44:59 Date Recorded Body height Body mass index (BMI) Body weight Body temperature Heart rate Oxygen saturation Oxygen saturation in Arterial blood by Pulse oximetry Systolic blood pressure Diastolic blood pressure Provider Name and Address Organization Details Last Updated DateTime 3 167.64 cm 30.2 kg/m2 99196.7 7 g 97.4 [degF] 73 /min 98 % 98 % 120 mm[Hg] 70 mm[Hg] Farzana Gee MA [place] [employer] 3 15:23:20 Date Recorded Body height Body mass index (BMI) Body weight Heart rate Body temperature Oxygen saturation Oxygen saturation in Arterial blood by Pulse oximetry Systolic blood pressure Diastolic blood pressure Provider Name and Address Organization Details Last Updated DateTime 3 167.64 cm 29.7 kg/m2 83458 g 66 /min 97 [degF] 96 % 96 % 118 mm[Hg] 60 mm[Hg] Nanci Vieyra [employer] 3 12:01:04 Date Recorded Body height Body mass index (BMI) Body weight Heart rate Body temperature Oxygen saturation Oxygen saturation in Arterial blood by Pulse oximetry Systolic blood pressure Diastolic blood pressure Provider Name and Address Organization Details Last Updated DateTime 4 167.64 cm 32 kg/m2 94351.2 9 g 76 /min 97 [degF] 98 % 98 % 120 mm[Hg] 68 mm[Hg] Nanci [facility] 4 10:41:23 Date Recorded Body height Body mass index (BMI) Body weight Heart rate Body temperature Oxygen saturation Oxygen saturation in Arterial blood by Pulse oximetry Systolic blood pressure Diastolic blood pressure Provider Name and Address Organization Details Last Updated DateTime 5 167.64 cm 32.8 kg/m2 19342.2 5 g 86 /min 97 [degF] 98 % 98 % 120 mm[Hg] 78 mm[Hg] Nanci [facility] 5 16:57:10 Social History Question Answer Notes LastModified by Organizat ion Details LastModified Time Tobacco Smoking Status Former Sm[facility] 06/06/2023 11:48:43 Do You Have An Advance Directive? No [id number] Information not available 10/23/2022 What Type Of Diet Are You Following? SPECIFIC [id number] Information not available 10/23/2022 Have You Recently Traveled Abroad? No Information not available 06/06/2023 Sex: Unknown Functional Status None recorded. Mental Status None recorded. Family History Nothing Reported Notes:Mother age 70 A+W Fath er age 76 [place] Prostate Sister 1 A+W MGM Breast ca,cad, HTN , CVA , dm MGF Cancer, CAD , HTN , CVA PGF prostate cancer Medical History Condition Response NERVE DISEASE N BLINDNESS N RHEUMATIC FEVER N KIDNEY STONES N BLADDER PROBLEMS N MRSA N OTHER # 1 N POLIO N LUNG DISEASE/DISORDER N COPD N RADIATION / CHEMOTHERAPY N Other # 2 N BLOOD DISEASES [...] INSOMNIA N HIGH CHOLESTEROL / HYPERLIPIDEMIA N EYE PROBLEMS N HYPERTHYROIDISM N EDEMA N CHRONIC PAIN SYNDROME N HYPOTHYROIDISM N CAROTID BLOCKAGE N CONSTIPATION N BACK / NECK PROBLEMS N HAVE YOU BEEN HOSPITALIZED OR SEEN IN [facility] IN THE PAST YEAR ? N ATHEROSCLEROSIS N BREAST PROBLEMS N DIALYSIS N ECZEMA N OSTEOPOROSIS N ARTHRITIS N NO SIGNIFICANT PAST MEDICAL HISTORY N APPENDICITIS N DIABETES, TYPE N BAD TEETH N ENT N HEARTBURN / REFLUX N AUTISM SPECTRUM DISORDER (ASD) N HEPATITIS / LIVER DISEASE N GOUT N SLEEP DISORDER N ALZHEIMER'S DISEASE N Brain Problems N DEMENTIA N HERPES N SEIZURES/EPILEPSY N HEADACHES/MIGRAINES Y VASCULAR DISEASE N PACEMAKER N Blood Disorder N DIZZINESS N HEART DISEASE/HEART PROBLEMS N KIDNEY DISEASE N MULTIPLE SCLEROSIS N CANCER: SPECIFY N CARDIAC ARRHYTHMIA N ATRIAL FIBRILLATION N Gall Stones N PULMONARY EMBOLISM N AUTOIMMUNE DISEASE N Gynecological HistoryNo gynecological history recorded. Obstetrics History GPAL:G 0 P 0 0 0 0 Immunizations Vaccine Type Date Status Note Provider Nam e and Address Organization Details Recorded Time SARS-COV-2 (COVID-19) vaccine, UNSPECIFIED 1 completed Not Available [facility] 10/23/2022 14:50:20 Influenza, split virus, quadrivalent, preservative 1 completed Not Available [facility] 10/23/2022 14:50:20 SARS-COV-2 (COVID-19) vaccine, UNSPECIFIED 1 completed Not Available [facility] 10/23/2022 14:50:20 SARS-COV-2 (COVID-19) vaccine, UNSPECIFIED 1 completed Not Available [facility] 10/23/2022 14:50:20 tetanus toxoid, adsorbed 5 completed Not Available [facility] 10/23/2022 14:50:20 Td (adult), 5 Lf tetanus toxoid, preservative free, adsorbed 5 completed Not Available [facility] 10/23/2022 14:50:21 Past Encounters Encounter ID Performer Location Encounter Start Date Encounter Closed Date Diagnosis/Indication Diagnosis SNOMED-CT Code Diagnosis ICD10 Code Diagnosis Note [id number] _ATHLENKA_M IGRATION_ DEFAULT_1 _1 , 11/09/2020 00:00:00 11/09/2020 14:02:53 [id number] _ATHENA_M IGRATION_ DEFAULT_1 _1 , 11/15/2020 00:00:00 11/15/2020 13:05:01 [id number] [facility] Internal Med [facility] [address] [place] [address] [address] 11/15/2020 00:00:00 11/15/2020 17:03:32 [id number] _ATHENA_M IGRATION_ DEFAULT_1 _1 , 12/11/2020 00:00:00 12/11/2020 17:05:32 [id number] [facility] Internal Med [facility] [address] [place] [address] [address] 01/10/2021 00:00:00 01/10/2021 15:20:05 [id number] _ATHENA_M IGRATION_ DEFAULT_1 _1 , 02/27/2021 00:00:00 02/27/2021 17:39:05 [id number] [facility] Internal Med [facility] [address] [place] [address] [address] 03/21/2021 00:00:00 03/21/2021 16:43:32 [id number] _ATHENA_M IGRATION_ DEFAULT_1 _1 , 05/29/2021 00:00:00 05/29/2021 16:14:01 [id number] [facility] Internal Med [facility] [address] [place] [address] 06/20/2021 00:00:00 06/20/2021 15:02:15 [id number] [facility] Internal Med [address] [address] 09/19/2021 00:00:00 09/19/2021 15:10:48 [id number] _ATHENA_M IGRATION_ DEFAULT_1 _1 , 11/15/2021 00:00:00 11/15/2021 18:17:14 [id number] [facility] Internal Med [facility] [address] [place] [address] 05/23/2022 00:00:00 05/23/2022 12:16:30 [id number] [facility] Internal Med [facility] [address] [place] [address] 06/05/2022 00:00:00 06/05/2022 14:46:29 [id number] [facility] Internal Med Valdez poseye [address] [place] [address] [place] [address] 10/04/2022 00:00:00 10/04/2022 11:56:47 [id number] Wily Oliver MD [facility] Internal Med [place] [address] [place] [address] 12/06/2022 14:53:52 12/06/2022 15:44:10 Post-surgical malabsorption 715513789 K91.2 Insomnia 982624354 G47.0 0 [id number] Wily Oliver MD [facility] Internal Med [place] [place] [address] 06/06/2023 11:46:53 06/06/2023 12:27:14 Adult health examination 115001887 Z00.00 Depression screening 171 511024 Z13.31 Anxiety disorder 5199625 06 F41.9 [id number] Wily Oliver MD [facility] Internal Med Valdez martinez [address] [place] [address] [place] [address] 03/09/2024 10:28:45 03/09/2024 11:05:13 Bilateral shoulder joint pain 7568140678 9888267 M25.511 Obese class I 5448573999 61513 E66.9 History of bariatric surgical procedure 587077406 Z98.84 [id number] Wily Oliver MD [facility] Primary Care Elizabeth martinez [address] [facility] [address] [place] [address] 09/21/2024 16:48:14 09/21/2024 17:16:57 Obese class I 6339777788 42733 E66.9 Health Concerns Section Related Observation LastModified by Organization Detai ls LastModified Time None Recorded Concern Status LastModified by Organization Details LastModified Time None Recorded Advance Directives Directive N: Payers Encounter Date Sequence Insurance Name Policy Number Policy Velez Covered Member ID Velez Member ID Guarantor Name 12/06/2022 1 [id number] Diana Sherwoodner [id number] Diana Silverman [place] 06/06/2023 1 [id number] Diana Sherwoodner [id number] Diana Silverman [place] 03/09/2024 1 [facility] [id number] Diana Sherwoodner [id number] Diana Sherwoodner 09/21/2024 1 [facility]) [id number] Diana Chisholm [id number] Diana Chisholm Notes Date Note Type Note Provider Name and Address Organization Details Recorded Time 12/07/19 23 text/htm l Patient Name: Diana ChisholmDate Of Service: Friday ( 12.06.2022 ): 1975 Age: 47 There has been approximately a 5.5 lb weight gain since 10/04/2022. This represents approximately a 3.0% change in weight. Weight change attributable to lifestyle changes. Vital Signs:Blood Pressure: Sitting Rt. Arm 120/70Pulse: Sitting 73 /min and RegularRespirations: 12Height 66 in or 1.7 mWeight 187 lb or 84.8 kgBMI 30.2 Chief Complaint: Addressed in HPI Problems or conditions discussed in the HPI were the only ones reviewed during the encounter.Only social and family history addressed in the HPI were reviewed during this encounter. Attendant(s): None Constitutional and Systemic Symptoms: none Medication Reconciliation: from medication list. History of Present Illness #1. 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 Bili is doing well. Has maintained weight reduction. Is slightly low vitamin-D and is receiving vitamin-D supplementation at this time.: #2. Mild initial insomnia currently stable taking trazodone 100 mg HS sleep doing well.:Medication List Reviewed and Reconciled 12/06/2022Trazodone 100 MG TABLET One Hs SleepVaccination and Rcoaebkrmvld2374-81 Omicraon Delta Wctry8999-76 Nkewguqha8682-96 Covid Bjiiab7728-85 Tetanus Rfzjobi8839-64 TdapSurgical HistoryGastric Bypass, Robotic Cholecystectomy, , tonsillectomyPreventative Testing Confirmed by Our Maylhra2611/12/2022 ALBUMIN 4.1 G/DL11/12/2022 HAIC 5.3 %Social HistoryWorks as secretaryMarried with one child, son age 5Non smokerno ETOHFamily HistoryMother age 70 A+WFather age 76 [place] ProstateSister 1 A+WMGM Breast ca,cad, HTN , CVA , dmMGF Cancer, CAD , HTN , CVAPGF prostate cancerMenarche Menopause A Wily Oliver MD [address] [facility], [facility] [address], [place], [address], [facility] [employer] 12/06/2022 15:40:52 06/06/20 23 text/htm l Patient Name: Diana Macdonald Of Service: Friday ( 06.06.2023 ): 1975 Age: 48 There has been approximately a 3 lb weight loss since 12/06/2022. This represents approximately a 1.6% change in weight. Weight change attributable to lifestyle changes. Vital Signs:Blood Pressure: Sitting Rt. Arm 118/60Pulse: Sitting 66 /min and RegularRespiratory Rate: 12Height 66 in or 1.7 mWeight 184 lb or 83.5 kgBMI 29.7Temperature: 97 F or 36.1 CPulse Oximetry: 97 % at rest on no oxygen Chief Complaint: Addressed in HPI Problems or conditions discussed in the HPI were the only ones reviewed during the encounter.Only social and family history addressed in the HPI were reviewed during this encounter. Attendant(s): NoneConstitutional and Systemic Symptoms:none Medication Reconciliation: from medication list. History of Present Illness In for a well patient check up. Last well patient evaluation was approximately one year. No interval complaints of any major medical problems. No hx of any chest pain, shortness of breath, nausea, vomiting, diarrhea or constitutional symptoms. Also being followed for other chronically monitored problems.Has Had A Mammogram dueHas Had A Pap Smear already doneImmunizations Up To Date or refuses to takeNo Significant Change In Family HxColonoscopy or Cologuard: dueFall Risk normalDepression Score: 0Hearing normalVision normalReviewed Smoking and Drug HistoryReviewed Immunization HistoryInstructed on importance of weight on diabetes, heart and other diseases aggravated by obesity. #1. Anxiety Disorder: History of anxiety disorder. There has been no panic attacks. No interval complaints of any vegetative or other signs of depression. Taking no medication. Discussed possibility of decreasing and weaning off medication. Feels that current regimen is working fine and wishes not to change the current treatment regimen. Medication not causing any sedation or cognitive dysfunction and there is no contraindication to continue current therapy.Medication List Reviewed and Reconciled 06/06/2023Trazodone 100 MG TABLET One Hs SleepVaccination and Awjsulewaeho7213-28 Dudtvbiht4489-83 Covid Ytksdj2587-17 TdapSurgical HistoryGastric Bypass, Robotic Cholecystectomy, , tonsillectomyPreventative Testing Confirmed by Our Guwdqhn4911/12/2022 ALBUMIN 4.1 G/DL N011/12/2022 HAIC 5.3 % NSocial HistoryWorks as secretaryMarried with one child, son age 5Non smokerno ETOHFamily HistoryMother age 70 A+WFather age 76 [place] ProstateSister 1 A+WMGM Breast ca,cad, HTN , CVA , dmMGF Cancer, CAD , HTN , CVAPGF prostate cancerMenarche Menopause A Wily Oliver MD [address] [facility], [facility] [address], [place], [address], [facility] [employer] 06/06/2023 12:15:34 03/09/20 24 text/htm l Patient Name: Diana Macdonald Of Service: Friday ( 03.09.2024 ): 1975 Age: 49 There has been approximately a 14 lb weight gain since 06/06/2023. This represents approximately a 7.6% change in weight. Weight change attributable to lifestyle changes. Vital Signs:Blood Pressure: Sitting Rt. Arm 120/68Pulse: Sitting 76 /min and RegularRespiratory Rate: 14Height 66 in or 1.7 mWeight 198 lb or 89.8 kgBMI 32.0Temperature: 97 F or 36.1 CPulse Oximetry: 98 % at rest on no oxygen Chief Complaint: Addressed in HPI Problems or conditions discussed in the HPI were the only ones reviewed during the encounter.Only social and family history addressed in the HPI were reviewed during this encounter. Attendant(s): NoneConstitutional and Systemic Symptoms:none Medication Reconciliation: from medication list. History of Present Illness #1. Bilateral shoulder pain probably more of an ergonomic type issue with her desk at work. Denies any numbness, tingling weakness or any other signs or symptoms suggestive of cervical radiculopathy. Will give a trial some baclofen 10 mg q.i.d. On a p.r.n. Type basis for muscle pain. Also suggested using some Aleve to help discomfort as well.: #2. Hx of obesity. Currently Class 1 Obesity BMI 30-34.99. Has tried numerous dietary support and supplements with no benefit. Instructed on the health consequences of the obese status particularly cancer - diabetes and heart disease. Discussed other modalities of weight loss GLP-1 medications that are used to treat diabetes. Potential candidate for bariatric surgery: Has already had gastric bypass back in 2020.. Wishes to be evaluated by Dietary: No and was offered to be evaluated and instructed by hair specialist on weight loss diet. Active Medication ListTrazodone 100 MG TABLET One Hs Sleep Vaccination and Lwowtedslwff0475-58 Qxsoknioj6401-13 Covid Kuaepc5037-41 Tdap Surgical Nuobsag2146-45 Gastric Qtqqpk0166-76 Robotic Zcgsspbmixwjlbo1241-08 n-bwfzkuh7339-70 tonsillectomy Preventative Jmizgzf6206/27/2023 MAMMOGRAM 403/ ALBUMIN 4.1 G/DL N011/12/2022 HAIC 5.3 % N Social HistoryWorks as secretaryMarried with one child, son age 5Non smokerno ETOH Family HistoryMother age 70 A+WFather age 76 [place] ProstateSister 1 A+WMGM Breast ca,cad, HTN , CVA , dmMGF Cancer, CAD , HTN , CVAPGF prostate cancerMenarche Menopause A Wily Oliver MD [address] [facility], [facility] [address], [place], [address], [place] [employer] [facility] 03/09/2024 10:57:45 09/21/19 25 text/htm l Patient Name: Diana Macdonald Of Service: Friday ( 09.21.2024 ): 1975 Age: 49 There has been approximately a 5 lb weight gain since 03/09/2024. This represents approximately a 2.5% change in weight. Weight change attributable to lifestyle changes. Vital Signs:Blood Pressure: Sitting Rt. Arm 120/78Pulse: Sitting 86 /min and RegularRespiratory Rate: 16Height 66 in or 1.7 mWeight 203 lb or 92.1 kgBMI 32.8Temperature: 97 F or 36.1 CPulse Oximetry: 98 % at rest on no oxygen Chief Complaint: Addressed in HPI Problems or conditions discussed in the HPI were the only ones reviewed during the encounter.Only social and family history addressed in the HPI were reviewed during this encounter. Attendant(s): NoneConstitutional and Systemic Symptoms:none Medication Reconciliation: from medication list. History of Present Illness #1. Hx of obesity. Currently Class 1 Obesity BMI 30-34.99. Has tried numerous dietary support and supplements with no benefit. Instructed on the health consequences of the obese status particularly cancer - diabetes and heart disease. Discussed other modalities of weight loss Has had previously gastric bypass and doing well. Has maintain a weight right around to 200 lb. . Potential candidate for bariatric surgery: No. Wishes to be evaluated by Dietary: No and was offered to be evaluated and instructed by hair specialist on weight loss diet. Active Medication ListTrazodone 100 MG TABLET One Hs Sleep Vaccination and Immunization( ) 2015-07 TDAP( ) 2015-07 TETANUS BOOSTER(X) 2021-05 COVID PFIZER(X) 2021-05 INFLUENZA Surgical Nlisona6343-12 Gastric Isibdi5517-30 Robotic Dakxymedyizlpdj1614-12 a-enrqdoj0788-05 tonsillectomy Preventative Testing(X) 06/27/2023 Mammogram 06/27/2024( ) 11/12/2022 Albumin 4.1 G/DL N( ) 11/12/2022 HAIC 5.3 % N Social HistoryWorks as secretaryMarried with one child, son age 5Non smokerno ETOH Family HistoryMother age 70 A+WFather age 76 [place] ProstateSister 1 A+WMGM Breast ca,cad, HTN , CVA , dmMGF Cancer, CAD , HTN , CVAPGF prostate cancerMenarche Menopause A Wily Oliver MD [address] [facility], [facility] [address], [place], [address], [facility] [employer] 09/21/2024 17:09:28 OBGyn Episode No OBEpisode recorded.
--- OUTSIDE RECORDS SUMMARY | 2024-12-10 08:12 | XMS_ITS | CONTINUITY OF CARE DOCUMENT ---
Author Name rona rea Address Unknown Organization [facility] Address [address] [place] [address] Phone [phone] Care Team Providers Care Plastic Design Applier Name Role Phone Marilee GAYTAN, Xavier Unavailable CRISTÓBAL MANNING MD Unavailable OLGA MANNING MD Unavailable PROBLEMS Condition Status Date Provider Notes Light headedness active Denis Santos INSURANCE PROVIDERS Payer name Policy type / Coverage type Leona red alliance party ID [facility] Blue [facility] [id number] TREATMENT PLAN Date Name Holter Monitor 24 Hr
[2024-12-10 08:51] LABS: Basophils Percent Auto 0.5 % (0.2-1.2); Eosinophils Absolute Auto 0.1 K/mm3 (0-0.3); Eosinophils Percent Auto 1.6 % (0-4.4); Hematocrit 40.4 % (37.0-47.0); Immature Granulocyte Absolute 0.02 K/mm3 (0.00-0.031); Immature Granulocyte Percent A 0.2 % (0-0.5); Lymphocytes Percent Auto 25.6 % (18.3-44.2); Mean Corpuscular HGB Conc 32.2 g/dl (32-36); Mean Corpuscular Hemoglobin 28.8 pg (26-34); Mean Corpuscular Volume 89.4 fl (80-100); Monocytes Absolute Auto 0.6 K/mm3 (0.1-0.6); Monocytes Percent Auto 7.2 % (2.6-8.5); Neutrophils Absolute Auto 5.6 K/mm3 (1.3-6.7); Neutrophils Percent Auto 64.9 % (45.5-73.1); Platelet Count Result 250 k/mm3 (150-375); Red Blood Count 4.52 M/mm3 (4.2-5.4); Red Cell Distribution Width 12.6 % (11.5-14.5); White Blood Count 8.6 K/mm3 (4.5-10.0)
[2024-12-10 09:02] LABS: Cholesterol 159 mg/dL (0-200); HDL Direct 61 mg/dL; Hemoglobin A1C 4.9 % (<5.7); Triglycerides 75 mg/dL (<150)
[2024-12-10 09:13] LABS: LDL Cholesterol Direct 66 mg/dL
[2024-12-10 09:20] LABS: Free T4 Free Thyroxine 1.07 ng/dL (0.78-2.19)
== END 2024-12-10 08:06 | disposition home or self-care (01) ==
LOC: ANHLAB 08:07
PROVIDERS: PCP Internal Medicine; Visit Provider Internal Medicine
DX: E66.9 Obesity, unspecified (principal)
CPT/HCPCS: 36415; 80061; 83036; 84439; 84443; 85025

== ENCOUNTER 2025-06-30 08:23 | Outpatient (CLI) | payer OTHER, SELFPAY ==
[2025-06-30 08:56] LABS: Hematocrit 41.2 % (37.0-47.0); Hemoglobin 13.5 g/dL (12.0-15.0); Immature Granulocyte Percent A 0.4 % (0-0.5); Lymphocytes Absolute Auto 2.14 K/mm3 (0.9-3.2); Mean Corpuscular HGB Conc 32.8 g/dl (32-36); Mean Corpuscular Hemoglobin 28.8 pg (26-34); Mean Corpuscular Volume 88.0 fl (80-100); Nucleated Red Blood Cells Absolute Auto 0.000 K/mm3 (0.0-0.012); Nucleated Red Blood Cells Perc 0.0 % (0.0-0.2); Platelet Count Result 248 k/mm3 (150-375); Red Blood Count 4.68 M/mm3 (4.2-5.4); White Blood Count 9.7 K/mm3 (4.5-10.0)
[2025-06-30 09:28] LABS: Alanine Aminotransferase 21 U/L (6-35); Albumin Level 4.2 g/dL (3.5-5.1); Alkaline Phosphatase 49 U/L (38-126); Anion Gap 6 mmol/L (4-12); Aspartate Amino Transferase 24 U/L (14-36); Bilirubin,Total 0.7 mg/dL (0.2-1.3); Blood Urea Nitrogen 16 mg/dL (7-17); Calcium 8.6 mg/dL (8.4-10.2); Carbon Dioxide 29 mmol/L (22-30); Chloride 102 mmol/L (98-107); Estimated Glomerular Filt Rate > 60; Glucose 92 mg/dL (65-110); HDL Direct 63 mg/dL; Potassium 4.1 mmol/L (3.4-5.0); Sodium 137 mmol/L (137-145); Total Protein 6.9 g/dL (6.3-8.2)
[2025-06-30 09:32] LABS: Hemoglobin A1C 5.1 % (<5.7)
[2025-06-30 09:35] LABS: Free T4 Free Thyroxine 0.97 ng/dL (0.78-2.19)
[2025-06-30 09:39] LABS: Cholesterol 173 mg/dL (0-200); Triglycerides 70 mg/dL (<150)
[2025-06-30 10:03] LABS: Thyroid Stimulating Hormone 1.420 uIU/mL (0.465-4.680)
== END 2025-06-30 08:24 | disposition home or self-care (01) ==
LOC: ANHLAB 08:26
PROVIDERS: PCP Internal Medicine; Visit Provider Internal Medicine
DX: Z00.00 Encounter for general adult medical examination without abnormal findings (principal); E66.9 Obesity, unspecified
CPT/HCPCS: 36415; 80053; 80061; 83036; 84439; 84443; 85025